=== PATIENT | female | born 1955 | race Caucasian/White ===

== ENCOUNTER 2016-10-17 14:36 | Outpatient (CLI) | payer BC, OTHER ==
[~2016-10-17] VITALS: Ht 160 cm; Wt 86.6 kg
[2016-10-17] MEDS ORDERED: LEVO75TA6 PO (16:07)
[2016-10-17] MEDS ORDERED: CITA20TA7 PO (16:07)
== END 2016-10-17 16:08 ==
LOC: PREOP 14:36
PROVIDERS: ATTEND Surgery Pediatric Surgery
DX: Z01.818 Encounter for other preprocedural examination (principal); K21.9 Gastro-esophageal reflux disease without esophagitis; R05 Cough

== ENCOUNTER → 2016-10-18 | Day surgery (SDC) | payer BC, OTHER ==
[~2016-10-18] MED LIST: ACETAMINOPHEN 325 MG TABLET/CAPLET (TYLENOL) PO PRN; CITA20TA7 PO; FLUMAZENIL (ROMAZICON) 0.1 MG/ML 5 ML VIAL INJ PRN; HURRICAINE EXT TUBE (BENZOCAINE) ONE; HURRICAINE EXT TUBE (BENZOCAINE) XX PRN; HYDROcodone/APAP 5 MG/325 MG (LORTAB) TAB PO PRN; LEVO75TA6 PO; LIDOCAINE JELLY 2% (XYLOCAINE) 5 ML TUBE MM PRN; MIDAZOLAM 2 MG/2 ML (VERSED) VIAL ONE; NALOXONE 0.4 MG/ML 1 ML (NARCAN) VIAL IVP PRN; NS IV 500 ML 500 ML IV PRN; ONDANSETRON 4 MG/2 ML (SDV) Z0FRAN IV PRN; fentaNYL INJECTION 100 MCG/2 ML AMP ONE; morphine INJ 10 MG/ML 1ML (SYR OR VIAL) IV PRN
--- NOTE | 2016-10-18 08:29 | Progress Note-Pre Operative ---
Pre-Operative Progress Note H&P Reviewed The H&P was reviewed, patient examined and no changes noted. Date H&P Reviewed: October 18, 2016 Time H&P Reviewed: 08:29 Pre-Operative Diagnosis: symptomatic large hiatal hernia HANS GAMEZ MD October 18, 2016 8:29 am
--- NOTE | 2016-10-18 08:29 | Conscious Sedation/ASA ---
Conscious Sedation Pre-Proced Time Reviewed: 08:29 ASA Class: 2 Airway Mallampati Classification: ([place] appropriate class) I. II. III, IV Lungs Heart ASA score ASA 1: a normal healthy patient ASA 2: a patient with a mild systemic disease (mid diabetes, controlled hypertension, obesity ASA 3: a patient with a severe systemic disease that limits activity (angina , COPD, prior Myocardial infarction) ASA 4: a patient with an incapacitating disease that is a constant threat to life (CHF, renal failure) ASA 5: a moribund patient not expected to survive 24 hrs. (ruptured aneurysm) ASA 6: a declared brain patient whose organs are being harvested. For emergent operations, add the letter E after the classification Grade 3 Sedation Plan: Analgesia, Amnesia, Plan communicated to team members, Discussed options with patient/fam, Discussed risks with patient/fam Note The patient is an appropriate candidate to undergo the planned procedure, sedation, and anesthesia. The patient immediately re-assessed prior to indication. HANS GAMEZ MD October 18, 2016 8:29 am
[2016-10-18 08:35] VITALS: BP 143/86
[2016-10-18] MEDS: fentaNYL INJECTION 100 MCG/2 ML AMP IVP PRN ×2 (09:43→09:46)
[2016-10-18] MEDS: MIDAZOLAM 2 MG/2 ML (VERSED) VIAL IVP PRN ×3 (09:45→09:50)
--- NOTE | 2016-10-18 10:23 | Progress Note-Post Operative ---
Post-Operative Progess Note Surgeon (s)/Faculty Administrator (s) Surgeon HANS GAMEZ MD Faculty Administrator: none Pre-Operative Diagnosis symptomatic large hiatal hernia Post-Operative Diagnosis same(hill grade 4, reflux esophagitis class B) Procedure & Operative Findings Date of Procedure 10/18/16 Procedure Performed/Findings EGD with bx. Anesthesia Type CS Estimated Blood Loss Estimated blood loss (mL): minimal Specimens/Packing Specimens Removed GE jxn, antrum Packing: none HANS GAMEZ MD October 18, 2016 10:23 am
--- NOTE | 2016-10-18 10:27 | Discharge Inst-Surgical ---
D/C Lap Instructions-FRANCO Follow Up PRN Activity as tolerated High Fiber Diet 25g or more per day Avoid Alcohol, Caffeine, Spicy [place] and Acid foods. Drink 64 fluid oz or more of fluids per day. Symptoms to Report: Fever over 101 degree F, Nausea/Vomiting If any problems/questions: Contact your physician or go to Emergency Room HANS GAMEZ MD October 18, 2016 10:27 am
[2016-10-18 10:40] VITALS: BP 138/79
[2016-10-18 11:06] VITALS: BP 130/63
--- NOTE | 2016-10-18 14:58 | OPERATIVE REPORT ---
DATE OF SERVICE: 10/18/2016 DATE OF PROCEDURE: 10/18/2016. ATTENDING PRIMARY CARE PHYSICIAN: Dr. Farmer. PREOPERATIVE DIAGNOSIS: Symptomatic large hiatal hernia. POSTOPERATIVE DIAGNOSIS: 1. Reflux esophagitis class B. 2. Hill grade IV hiatal hernia approximately 6 cm in size with the pylorus within the hernia sac. PROCEDURE: EGD with biopsy. SURGEON: Dr. Gamez ANESTHESIA: Conscious sedation. ESTIMATED BLOOD LOSS: Minimal. FINDINGS: A large grade IV hiatal hernia with reflux esophagitis class B in the GE junction which was intrathoracic. Within hernia sac was the antrum and pylorus of the stomach. DISPOSITION: The patient tolerated the procedure well. INDICATIONS: The patient is a 61-year-old female recently seen in the office for symptoms of a chronic cough, anorexia, epigastric pressure sensation. She reports that the cough has been around for a year; however, has worsened significantly in the past several months. She may have a coughing spell that lasts for greater than 45 minutes. She reports that the cough is nonproductive. She does not report any hematemesis. She does also report pressure sensation in the epigastric as well as the substernal region. She does not report any tabby episodes of nausea and vomiting as well as no typical signs of reflux, however, does have occasional episodes of regurgitation. An x-ray was performed which did show what appeared to be a large retrocardiac hiatal hernia. DESCRIPTION OF PROCEDURE: The patient was brought to the endoscopy suite, laid in the left lateral decubitus position. After adequate IV pain and sedating medications and conscious sedation anesthesia, the mouthpiece was applied. The endoscope was then placed in the mouth visualizing the pharynx and hypopharyngeal region. Vocal cords, epiglottis and vallecula identified and appeared to be normal. The endoscope was then gently intubated in the esophageal opening and esophagus insufflated. The endoscope was then advanced to the first, second and third portions of the esophagus. The GE junction was slightly intrathoracic consistent with a hiatal hernia. A reflux esophagitis class B identified. There were no ulcers or strictures identified in this region. A biopsy was taken with forceps with visualization of good hemostasis. The endoscope was then easily advanced in the stomach and the endoscope retroflexed. A large hiatal hernia was identified. An interesting finding was also that the antrum and pylorus appeared to be in the hernia sac as well. The endoscope was placed into the antrum and pylorus within the hernia sac; however, we were unable to intubate to the duodenum based on positioning. There did not appear to be any distal obstructions as well as no ulcerations or polyps as well as no neoplasms. A biopsy was taken of the stomach and antrum with forceps with visualization of good hemostasis. The endoscope was then slowly withdrawn while taking a 2nd look and suctioning of residual air with no additional findings. The patient tolerated the procedure well. We will await the biopsy results; however, she does have a large Hill grade IV hiatal hernia with reflux esophagitis class B. She has become symptomatic and will require repair of this hiatal hernia. This is a large hiatal hernia and is significant in terms of size, as well as the structures within the mediastinum and this may require a transthoracic approach for repair. Due to the type of hernia, she may also have esophageal shortening and may require Carli gastroplasty. Due to these findings, we will refer her to a tertiary center for evaluation as well as repair. She most likely will also need an esophageal manometry as well as a pH study and if she wishes to have these things scheduled, we will do that as well. Job ID: [id number] DocumentID: [id number] Dictated Date: 10/18/2016 10:25:39 Manager Discovery Date: 10/18/2016 14:57:08 Dictated By: HANS GAMEZ MD
== END ==
LOC: ENDO 08:23
PROVIDERS: ATTEND Surgery Pediatric Surgery
DX: K21.0 Gastro-esophageal reflux disease with esophagitis (principal); K44.9 Diaphragmatic hernia without obstruction or gangrene; E03.9 Hypothyroidism, unspecified; Z79.899 Other long term (current) drug therapy

== ENCOUNTER 2018-02-19 06:11 | Outpatient (CLI) | payer BC ==
[~2018-02-19] VITALS: Ht 160 cm; Wt 87.1 kg
[~2018-02-19 06:11] MED LIST changes: -ACETAMINOPHEN 325 MG TABLET/CAPLET (TYLENOL) PO PRN; -CITA20TA7 PO; +CITA20TA9 PO; -FLUMAZENIL (ROMAZICON) 0.1 MG/ML 5 ML VIAL INJ PRN; -HURRICAINE EXT TUBE (BENZOCAINE) ONE; -HURRICAINE EXT TUBE (BENZOCAINE) XX PRN; -HYDROcodone/APAP 5 MG/325 MG (LORTAB) TAB PO PRN; -LIDOCAINE JELLY 2% (XYLOCAINE) 5 ML TUBE MM PRN; -MIDAZOLAM 2 MG/2 ML (VERSED) VIAL ONE; -NALOXONE 0.4 MG/ML 1 ML (NARCAN) VIAL IVP PRN; -NS IV 500 ML 500 ML IV PRN; -ONDANSETRON 4 MG/2 ML (SDV) Z0FRAN IV PRN; -fentaNYL INJECTION 100 MCG/2 ML AMP ONE; -morphine INJ 10 MG/ML 1ML (SYR OR VIAL) IV PRN
[2018-02-19] MEDS ORDERED: [UNRECOGNIZED DRUG - CODE] PO (14:34)
== END 2018-02-19 14:45 | disposition home or self-care (01) ==
LOC: PREOP 06:11
PROVIDERS: ATTEND Surgery
DX: Z01.818 Encounter for other preprocedural examination (principal)

== ENCOUNTER 2018-02-21 10:25 | Day surgery (SDC) | payer BC ==
[~2018-02-21] VITALS: Ht 160 cm; Wt 87.1 kg
[~2018-02-21 10:25] MED LIST changes: +[UNRECOGNIZED DRUG - CODE] PO
--- OUTSIDE RECORDS SUMMARY | 2018-02-21 10:29 | XMS REPORT | Clinical Summary ---
Author Author [facility] Organization [facility] Address Unknown Phone Unavailable Care Team Providers Care Baseball Winder Name Role Phone Roxie Farmer MD PCP Source Comments Some departments are not documenting in the electronic medical record. If you do not see the information that you expected, contact Release of Information in the Health Information Management department at [phone] for further assistance in locating additional records.[facility] Allergies No Known Allergies Current Medications Prescription Sig. Disp. Refills Start End Date Status Date clobetasol (TEMOVATE) Apply 1 g topically to Active 0.05 % topical cream affected area as Needed. levothyroxine (SYNTHROID) Take 75 mcg by mouth Active 75 mcg tablet daily 30 minutes before breakfast. escitalopram oxalate Take 20 mg by mouth Active (LEXAPRO) 20 mg tablet daily. pantoprazole DR Take 40 mg by mouth Active (PROTONIX) 40 mg tablet daily. benzonatate (TESSALON Take 100 mg by mouth Active PERLES) 100 mg capsule every 8 hours as needed for Cough. cholecalciferol (VITAMIN Take 1,000 Units by mouth Active D-3) 1,000 units tablet twice daily. Active Problems Problem Noted Date Hiatal hernia Hypothyroidism Depression Family History Medical History Relation Name Comments Diabetes Brother Cancer Mother Intraperitoneal cancer w/ mets to pancreas Hypertension Mother Hypertension Sister Relation Name Status Comments Brother Mother Sister Social History Tobacco Use Types Packs/Day Years Used Date Never Smoker Smokeless Tobacco: Never Used Sex Assigned at Date Recorded Not on file Last Filed Vital Signs Vital Sign Reading Time Taken Blood Pressure 126/84 01/15/2017 1:40 PM CDT Pulse 72 01/15/2017 1:40 PM CDT Temperature 36.5 C (97.7 F) 01/15/2017 1:40 PM CDT Respiratory Rate - - Oxygen Saturation 98% 01/15/2017 1:40 PM CDT Inhaled Oxygen - - Concentration Weight 87.9 kg (193 lb 12.8 oz) 01/15/2017 1:40 PM CDT Height 157 cm (5' 1.8") 01/15/2017 1:40 PM CDT Body Mass Index 35.68 01/15/2017 1:40 PM CDT Plan of Treatment Health Maintenance Due Date Last Done Comments HEPATITIS C SCREENING 1953 PHYSICAL (COMPREHENSIVE) 1960 EXAM PERTUSSIS VACCINE 1964 HIV SCREENING 1968 TETANUS VACCINE 1970 CERVICAL CANCER SCREENING 1983 BREAST CANCER SCREENING 1993 COLORECTAL CANCER 2003 SCREENING SHINGLES RECOMBINANT 2003 VACCINE (1 of 2) INFLUENZA VACCINE 03/03/2018 Results Not on filefrom Last 3 Months
[2018-02-21 10:30] VITALS: BP 122/81
--- OUTSIDE RECORDS SUMMARY | 2018-02-21 10:30 | XMS REPORT | Clinical Summary ---
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 Inactive Tobin Navarrete MD Dermatomycosis, unspecified G E R D 530.81 Active Tobin Navarrete MD Esophageal reflux SINUSITIS 473.9 Resolved Belkys Van MD PhD Unspecified sinusitis (chronic) ALLERGIC RHINITIS 477.9 Active Tobin Navarrete MD Allergic rhinitis, cause unspecified COUGH 786.2 Resolved Belkys Van MD PhD Cough Depression 311 Active Zahira Grant APRN Depressive disorder, not elsewhere classified Sinusitis, acute 461.9 Resolved Belkys Van MD PhD Acute sinusitis, unspecified Dysuria 788.1 Active Belkys Van MD PhD Dysuria Sinusitis, maxillary, acute 461.0 Active Belkys Van MD PhD Acute maxillary sinusitis Laboratory examination ordered as part of a routine general medical examination V72.62 Active Kaity Lord A Laboratory examination ordered as part of a routine general medical examination Long-term (current) use of other medications V58.69 Active 12/08 Kaity Lord RMA Long-term (current) use of other medications Adult healthy physical V70.0 Active Cindy Deniseughan RMA Routine general medical examination at a health care facility Pharyngitis, acute / sore throat 462 Active Tosha De La Rosa APRN Acute pharyngitis OTITIS EXTERNA ICD-380.10 Inactive Belkys Van MD PhD FUNGAL DERMATITIS ICD-111.9 Inactive Tobin Navarrete MD SINUSITIS ICD-473.9 Inactive Belkys Van MD PhD COUGH ICD-786.2 Inactive Belkys Van MD PhD 06/14 Sinusitis, acute ICD-461.9 Inactive Belkys Van MD PhD Medication List Medication Instructions Start Date Stop Date Generic Name NDC Status Provider Patient Instruction AMOXICILLIN-POT CLAVULANATE 875-125 MG TABS 1 twice a day AMOXICILLIN-POT CLAVULANATE 75003438499 Active Tosha De La Rosa APRN Active TESSALON PERLES 100 MG CAPS 1 three times a day as needed for cough BENZONATATE 53596424816 Active SHYANNE Mariscal Active GUAIFENESIN-CODEINE 100-10 MG/5ML SYRP 5ml every 4 to 6 hours as needed for cough GUAIFENESIN-CODEINE 77662106020 No Longer Active Tosha De La Rosa APRN Active AMOXICILLIN-POT CLAVULANATE 875-125 MG TABS 1 twice a day AMOXICILLIN-POT CLAVULANATE 30232983730 No Longer Active Tosha De La Rosa APRN Active ZYRTEC ALLERGY 10 MG CAPS 1 po qd CETIRIZINE HCL 54535372205 No Longer Active Tosha De La Rosa APRN Active LEVAQUIN 500 MG TAB 1 tablet by mouth daily LEVOFLOXACIN 91861208967 No Longer Active Belkys Van MD PhD Active CLOBETASOL PROPIONATE 0.05 % EXT CREA apply daily CLOBETASOL PROPIONATE 74537401623 Active Belkys Van MD PhD Active LEVOXYL 75 MCG ORAL TABS Take one by mouth daily LEVOTHYROXINE SODIUM 41058504229 Active Belkys Van MD PhD Active VITAMIN D3 1000 UNIT CAPS 1 po qd CHOLECALCIFEROL 13714198014 Active Belkys Van MD PhD Active LEXAPRO 10 MG TABS 1 tablet by mouth daily ESCITALOPRAM OXALATE 94826972277 Active Belkys Van MD PhD Active SERTRALINE HCL 100 MG TABS 1/2 tab daily SERTRALINE HCL 64060551805 No Longer Active Belkys Van MD PhD Active AMOXICILLIN 500 MG CAPS 2 po BID x 10 days AMOXICILLIN 82466456317 No Longer Active Belkys Van MD PhD Active FLUTICASONE PROPIONATE 50 MCG/ACT SUSP 1 to 2 sprays each nostril daily FLUTICASONE PROPIONATE 41700017595 Active Belkys Van MD PhD Active RANITIDINE HCL 300 MG CAPS 1 tablet by mouth daily RANITIDINE HCL 03835734575 No Longer Active Belkys Van MD PhD Active AMOXICILLIN 500 MG CAPS 2 po BID x 10 days AMOXICILLIN 03109168283 No Longer Active Jesus Spencer MD Active MEDROL (ELIZABETH) 4 MG TABS 6 tabs on day 1, 5 tabs on day 2, 4 tabs on day 3, 3 tabs on day 4, 2 tabs on day 5, 1 tab on day 6 METHYLPREDNISOLONE 54875442912 No Longer Active Zahira Grant APRN Active ZITHROMAX 250 MG TAB 2 po today, then 1 po q days 2-5 AZITHROMYCIN 99542131211 No Longer Active Zahira Grant APRN Active CORTISPORIN 3.5-14402-5 SOLN 4gtts in affected ear QID x 7 days [id number] 49711072709 No Longer Active Zahira Grant APRN Active AMOXICILLIN 500 MG CAP 1 tab by mouth 3 times daily AMOXICILLIN 09492502068 No Longer Active Tobin Navarrete MD Active CORTISPORIN 3.5-25492-6 SOLN 4gtts in affected ear QID x 7 days CORTISPORIN 3.5-42441-2 SOLN 691138 [id number] Inactive RANITIDINE HCL 300 MG CAPS 1 tablet by mouth daily RANITIDINE HCL 300 MG CAPS 292474 RANITIDINE HCL Inactive SERTRALINE HCL 100 MG TABS 1/2 tab daily SERTRALINE HCL 100 MG TABS 121565 SERTRALINE HCL Inactive ZYRTEC ALLERGY 10 MG CAPS 1 po qd ZYRTEC ALLERGY 10 MG CAPS CETIRIZINE HCL Inactive AMOXICILLIN-POT CLAVULANATE 875-125 MG TABS 1 twice a day AMOXICILLIN-POT CLAVULANATE 875-125 MG TABS 860784 AMOXICILLIN-POT CLAVULANATE Inactive GUAIFENESIN-CODEINE 100-10 MG/5ML SYRP 5ml every 4 to 6 hours as needed for cough GUAIFENESIN-CODEINE 100-10 MG/5ML SYRP 025700 GUAIFENESIN-CODEINE Inactive AMOXICILLIN 500 MG CAP 1 tab by mouth 3 times daily AMOXICILLIN 500 MG CAP 114813 AMOXICILLIN Inactive ZITHROMAX 250 MG TAB 2 po today, then 1 po q days 2-5 ZITHROMAX 250 MG TAB 033372 AZITHROMYCIN Inactive MEDROL (ELIZABETH) 4 MG TABS 6 tabs on day 1, 5 tabs on day 2, 4 tabs on day 3, 3 tabs on day 4, 2 tabs on day 5, 1 tab on day 6 MEDROL ( ELIZABETH) 4 MG TABS 258025 METHYLPREDNISOLONE Inactive AMOXICILLIN 500 MG CAPS 2 po BID x 10 days AMOXICILLIN 500 MG CAPS 326493 AMOXICILLIN Inactive AMOXICILLIN 500 MG CAPS 2 po BID x 10 days AMOXICILLIN 500 MG CAPS 145211 AMOXICILLIN Inactive LEVAQUIN 500 MG TAB 1 tablet by mouth daily LEVAQUIN 500 MG TAB 184292 LEVOFLOXACIN Inactive Advance Directives Directive Description Start Date PERMISSION TO SHARE Immunizations Vaccine Administration Date Value Standard Description TB-PPD (tuberculin purified protein derivative), intradermal administration Tubersol Vital Signs Date Name Value Unit Range Description blood pressure, diastolic 85 mm[Hg] BP márquez blood pressure, systolic 138 mm[Hg] BP sys height E&M 62 [in_us] Bdy height pulse rate E&M 89 /min Heart rate temperature E&M 99.3 [degF] Body temperature weight E&M 197.5 [lb_av] Weight Measured Encounters Code Encounter Date Provider Facility CPT-30796 Level 3 Est. Patient 11:16:00 CDT Tosha De La Rosa [facility] CPT-70561 Level 3 Est. Patient 12:33:37 BANKING ASSISTANT Jesus Spencer MD [facility] CPT-45793 Level 3 Est. Patient 17:40:56 CDT Belkys Van MD PhD [facility] CPT-54767 Level 3 Est. Patient 17:06:11 BANKING ASSISTANT Belkys Van MD PhD [facility] CPT-49753 Level 3 Est. Patient 12:15:32 CDT Jesus Spencer MD [facility] CPT-12408 Level 3 Est. Patient 12:36:00 BANKING ASSISTANT Zahira Grant [facility] [place] CPT-31041 Level 3 Est. Patient 10:08:04 CDT Tobin Navarrete MD [facility] CPT-62544 Level 3 Est. Patient 18:50:31 BANKING ASSISTANT Tobin Navarrete MD [facility] CPT-35160 Level 2 New Patient 12:45:04 CDT Jesus Spencer MD [facility] Procedures Code Procedure Name Date Entry Date Standard Description CPT-85553 Chest 2V Frontal and Lat - XRAY USE ONLY 17:12:28 CDT CPT-46351 Chest 2V Frontal and Lat - XRAY USE ONLY 17:07:35 CDT CPT-33404 Venipuncture Draw Fee 10:30:24 CDT CPT-33687 Venipuncture Draw Fee 16:14:07 CDT CPT-05011 TB Tubersol 16:59:46 CDT
--- OUTSIDE RECORDS SUMMARY | 2018-02-21 10:32 | XMS REPORT | Clinical Summary ---
Author Author Admin, KENIA Organization [facility] Address Unknown Phone Unavailable Allergies, Adverse Reactions, [...] TABS 1 twice a day AMOXICILLIN-POT CLAVULANATE 91343283568 Active Tosha De La Rosa APRN Active TESSALON PERLES 100 MG CAPS 1 three times a day as needed for cough BENZONATATE 00275055893 Active SHYANNE Mariscal Active GUAIFENESIN-CODEINE 100-10 MG/5ML SYRP 5ml every 4 to 6 hours as needed for cough GUAIFENESIN-CODEINE 04714812100 No Longer Active Tosha De La Rosa APRN Active AMOXICILLIN-POT CLAVULANATE 875-125 MG TABS 1 twice a day AMOXICILLIN-POT CLAVULANATE 69670376292 No Longer Active Tosha De La Rosa APRN Active ZYRTEC ALLERGY 10 MG CAPS 1 po qd CETIRIZINE HCL 11705446699 No Longer Active Tosha De La Rosa APRN Active LEVAQUIN 500 MG TAB 1 tablet by mouth daily LEVOFLOXACIN 19883590288 No Longer Active Belkys Van MD PhD Active CLOBETASOL PROPIONATE 0.05 % EXT CREA apply daily CLOBETASOL PROPIONATE 55098617111 Active Belkys Van MD PhD Active LEVOXYL 75 MCG ORAL TABS Take one by mouth daily LEVOTHYROXINE SODIUM 77384910685 Active Belkys Van MD PhD Active VITAMIN D3 1000 UNIT CAPS 1 po qd CHOLECALCIFEROL 17569328717 Active Belkys Van MD PhD Active LEXAPRO 10 MG TABS 1 tablet by mouth daily ESCITALOPRAM OXALATE 72997934815 Active Belkys Van MD PhD Active SERTRALINE HCL 100 MG TABS 1/2 tab daily SERTRALINE HCL 76828486031 No Longer Active Belkys Van MD PhD Active AMOXICILLIN 500 MG CAPS 2 po BID x 10 days AMOXICILLIN 07397700829 No Longer Active Belkys Van MD PhD Active FLUTICASONE PROPIONATE 50 MCG/ACT SUSP 1 to 2 sprays each nostril daily FLUTICASONE PROPIONATE 69378677254 Active Belkys Van MD PhD Active RANITIDINE HCL 300 MG CAPS 1 tablet by mouth daily RANITIDINE HCL 99570904681 No Longer Active Belkys Van MD PhD Active AMOXICILLIN 500 MG CAPS 2 po BID x 10 days AMOXICILLIN 27527499350 No Longer Active Jesus Spencer MD Active MEDROL (ELIZABETH) 4 MG TABS 6 tabs on day 1, 5 tabs on day 2, 4 tabs on day 3, 3 tabs on day 4, 2 tabs on day 5, 1 tab on day 6 METHYLPREDNISOLONE 44455563568 No Longer Active Zahira Grant APRN Active ZITHROMAX 250 MG TAB 2 po today, then 1 po q days 2-5 AZITHROMYCIN 52049856257 No Longer Active Zahira Grant APRN Active CORTISPORIN 3.5-99579-1 SOLN 4gtts in affected ear QID x 7 days [id number] 49667598291 No Longer Active Zahira Grant APRN Active AMOXICILLIN 500 MG CAP 1 tab by mouth 3 times daily AMOXICILLIN 69978082038 No Longer Active Tobin Navarrete MD Active CORTISPORIN 3.5-51932-5 SOLN 4gtts in affected ear QID x 7 days CORTISPORIN 3.5-44270-6 SOLN 031143 [id number] Inactive RANITIDINE HCL 300 MG CAPS 1 tablet by mouth daily RANITIDINE HCL 300 MG CAPS 343177 RANITIDINE HCL Inactive SERTRALINE HCL 100 MG TABS 1/2 tab daily SERTRALINE HCL 100 MG TABS 510814 SERTRALINE HCL Inactive ZYRTEC ALLERGY 10 MG CAPS 1 po qd ZYRTEC ALLERGY 10 MG CAPS CETIRIZINE HCL Inactive AMOXICILLIN-POT CLAVULANATE 875-125 MG TABS 1 twice a day AMOXICILLIN-POT CLAVULANATE 875-125 MG TABS 449251 AMOXICILLIN-POT CLAVULANATE Inactive GUAIFENESIN-CODEINE 100-10 MG/5ML SYRP 5ml every 4 to 6 hours as needed for cough GUAIFENESIN-CODEINE 100-10 MG/5ML SYRP 812945 GUAIFENESIN-CODEINE Inactive AMOXICILLIN 500 MG CAP 1 tab by mouth 3 times daily AMOXICILLIN 500 MG CAP 628443 AMOXICILLIN Inactive ZITHROMAX 250 MG TAB 2 po today, then 1 po q days 2-5 ZITHROMAX 250 MG TAB 355734 AZITHROMYCIN Inactive MEDROL (ELIZABETH) 4 MG TABS 6 tabs on day 1, 5 tabs on day 2, 4 tabs on day 3, 3 tabs on day 4, 2 tabs on day 5, 1 tab on day 6 MEDROL ( ELIZABETH) 4 MG TABS 983083 METHYLPREDNISOLONE Inactive AMOXICILLIN 500 MG CAPS 2 po BID x 10 days AMOXICILLIN 500 MG CAPS 887045 AMOXICILLIN Inactive AMOXICILLIN 500 MG CAPS 2 po BID x 10 days AMOXICILLIN 500 MG CAPS 293059 AMOXICILLIN Inactive LEVAQUIN 500 MG TAB 1 tablet by mouth daily LEVAQUIN 500 MG TAB 724208 LEVOFLOXACIN Inactive Advance Directives Directive Description Start [...] Measured Encounters Code Encounter Date Provider Facility CPT-62654 Level 3 Est. Patient 11:16:00 CDT Tosha De La Rosa [facility] CPT-29102 Level 3 Est. Patient 12:33:37 BUILDING SURVEYOR Jesus Spencer MD [facility] CPT-54061 Level 3 Est. Patient 17:40:56 CDT Belkys Van MD PhD [facility] CPT-62750 Level 3 Est. Patient 17:06:11 BUILDING SURVEYOR Belkys Van MD PhD [facility] CPT-34979 Level 3 Est. Patient 12:15:32 CDT Jesus Spencer MD [facility] CPT-06934 Level 3 Est. Patient 12:36:00 BUILDING SURVEYOR Zahira Grant [facility] CPT-60884 Level 3 Est. Patient 10:08:04 CDT Tobin Navarrete MD [facility] CPT-22727 Level 3 Est. Patient 18:50:31 BUILDING SURVEYOR Tobin Navarrete MD [facility] CPT-97700 Level 2 New Patient 12:45:04 CDT Jesus Spencer MD [facility] Procedures Code Procedure Name Date Entry Date Standard Description CPT-89067 Chest 2V Frontal and Lat - XRAY USE ONLY 17:12:28 CDT CPT-59737 Chest 2V Frontal and Lat - XRAY USE ONLY 17:07:35 CDT CPT-86992 Venipuncture Draw Fee 10:30:24 CDT CPT-46753 Venipuncture Draw Fee 16:14:07 CDT CPT-14195 TB Tubersol 16:59:46 CDT
--- OUTSIDE RECORDS SUMMARY | 2018-02-21 10:32 | XMS REPORT | Clinical Summary ---
Author Author Admin, KENIA Organization [facility] Address Unknown Phone Unavailable Allergies, Adverse Reactions, [...] medications Adult healthy physical V70.0 Active Cindy Jaimes RMA Routine general medical examination at a health care facility Pharyngitis, acute / sore throat 462 Active Tosha De La Rosa APRN Acute pharyngitis OTITIS EXTERNA ICD-380.10 Inactive Belkys Van MD PhD FUNGAL DERMATITIS ICD-111.9 Inactive Tobin Navarrete MD SINUSITIS ICD-473.9 Inactive Belyks Van MD PhD COUGH ICD-786.2 Inactive Belkys Van MD PhD 06/14 Sinusitis, acute ICD-461.9 Inactive Belkys Van MD PhD Medication List Medication Instructions Start Date Stop Date Generic Name NDC Status Provider Patient Instruction AMOXICILLIN-POT CLAVULANATE 875-125 MG TABS 1 twice a day AMOXICILLIN-POT CLAVULANATE 61676009149 Active Tosha De La Rosa APRN Active TESSALON PERLES 100 MG CAPS 1 three times a day as needed for cough BENZONATATE 35698909357 Active Tosha De La Rosa APRN Active GUAIFENESIN-CODEINE 100-10 MG/5ML SYRP 5ml every 4 to 6 hours as needed for cough GUAIFENESIN-CODEINE 74030773687 No Longer Active Tosha De La Rosa APRN Active AMOXICILLIN-POT CLAVULANATE 875-125 MG TABS 1 twice a day AMOXICILLIN-POT CLAVULANATE 01723444460 No Longer Active Tosha De La Rosa APRN Active ZYRTEC ALLERGY 10 MG CAPS 1 po qd CETIRIZINE HCL 29336025097 No Longer Active Tosha De La Rosa APRN Active LEVAQUIN 500 MG TAB 1 tablet by mouth daily LEVOFLOXACIN 92764866359 No Longer Active Belkys Van MD PhD Active CLOBETASOL PROPIONATE 0.05 % EXT CREA apply daily CLOBETASOL PROPIONATE 02887374328 Active Belkys Van MD PhD Active LEVOXYL 75 MCG ORAL TABS Take one by mouth daily LEVOTHYROXINE SODIUM 81511591758 Active Belkys Van MD PhD Active VITAMIN D3 1000 UNIT CAPS 1 po qd CHOLECALCIFEROL 37825086451 Active Belkys Van MD PhD Active LEXAPRO 10 MG TABS 1 tablet by mouth daily ESCITALOPRAM OXALATE 81980753028 Active Belkys Van MD PhD Active SERTRALINE HCL 100 MG TABS 1/2 tab daily SERTRALINE HCL 13220683841 No Longer Active Belkys Van MD PhD Active AMOXICILLIN 500 MG CAPS 2 po BID x 10 days AMOXICILLIN 83040367068 No Longer Active Belkys Van MD PhD Active FLUTICASONE PROPIONATE 50 MCG/ACT SUSP 1 to 2 sprays each nostril daily FLUTICASONE PROPIONATE 35620245914 Active Belkys Van MD PhD Active RANITIDINE HCL 300 MG CAPS 1 tablet by mouth daily RANITIDINE HCL 87527759360 No Longer Active Belkys Van MD PhD Active AMOXICILLIN 500 MG CAPS 2 po BID x 10 days AMOXICILLIN 21982930904 No Longer Active Jesus Spenecr MD Active MEDROL (ELIZABETH) 4 MG TABS 6 tabs on day 1, 5 tabs on day 2, 4 tabs on day 3, 3 tabs on day 4, 2 tabs on day 5, 1 tab on day 6 METHYLPREDNISOLONE 59994359088 No Longer Active Zahira Grant APRN Active ZITHROMAX 250 MG TAB 2 po today, then 1 po q days 2-5 AZITHROMYCIN 46638941866 No Longer Active Zahira Grant APRN Active CORTISPORIN 3.5-36744-8 SOLN 4gtts in affected ear QID x 7 days [id number] 09154717052 No Longer Active Zahira Grant APRN Active AMOXICILLIN 500 MG CAP 1 tab by mouth 3 times daily AMOXICILLIN 70172923872 No Longer Active Tobin Navarrete MD Active CORTISPORIN 3.5-63955-7 SOLN 4gtts in affected ear QID x 7 days CORTISPORIN 3.5-36389-4 SOLN 562911 [id number] Inactive RANITIDINE HCL 300 MG CAPS 1 tablet by mouth daily RANITIDINE HCL 300 MG CAPS 653955 RANITIDINE HCL Inactive SERTRALINE HCL 100 MG TABS 1/2 tab daily SERTRALINE HCL 100 MG TABS 982447 SERTRALINE HCL Inactive ZYRTEC ALLERGY 10 MG CAPS 1 po qd ZYRTEC ALLERGY 10 MG CAPS CETIRIZINE HCL Inactive AMOXICILLIN-POT CLAVULANATE 875-125 MG TABS 1 twice a day AMOXICILLIN-POT CLAVULANATE 875-125 MG TABS 337229 AMOXICILLIN-POT CLAVULANATE Inactive GUAIFENESIN-CODEINE 100-10 MG/5ML SYRP 5ml every 4 to 6 hours as needed for cough GUAIFENESIN-CODEINE 100-10 MG/5ML SYRP 995756 GUAIFENESIN-CODEINE Inactive AMOXICILLIN 500 MG CAP 1 tab by mouth 3 times daily AMOXICILLIN 500 MG CAP 274938 AMOXICILLIN Inactive ZITHROMAX 250 MG TAB 2 po today, then 1 po q days 2-5 ZITHROMAX 250 MG TAB 0414389 AZITHROMYCIN Inactive MEDROL (ELIZABETH) 4 MG TABS 6 tabs on day 1, 5 tabs on day 2, 4 tabs on day 3, 3 tabs on day 4, 2 tabs on day 5, 1 tab on day 6 MEDROL ( ELIZABETH) 4 MG TABS 412465 METHYLPREDNISOLONE Inactive AMOXICILLIN 500 MG CAPS 2 po BID x 10 days AMOXICILLIN 500 MG CAPS 200872 AMOXICILLIN Inactive AMOXICILLIN 500 MG CAPS 2 po BID x 10 days AMOXICILLIN 500 MG CAPS 157585 AMOXICILLIN Inactive LEVAQUIN 500 MG TAB 1 tablet by mouth daily LEVAQUIN 500 MG TAB 011796 LEVOFLOXACIN Inactive Advance Directives Directive Description Start Date PERMISSION TO SHARE Immunizations Vaccine Administration Date Value Standard Description TB-PPD (tuberculin purified protein derivative), intradermal administration Tubersol Vital Signs Date Name Value Unit Range Description blood pressure, diastolic - 8462-4 85 mm[Hg] BP márquez blood pressure, systolic - 8480-6 138 mm[Hg] BP sys height E&M - 8302-2 62 [in_us] Bdy height pulse rate E&M - 8867-4 89 /min Heart rate temperature E&M 99.3 [degF] Body temperature weight E&M - 3141-9 197.5 [lb_av] Weight Measured Diagnostic Results Date Name Value Unit Range Description Lab Report: CBC W/DIFF, Comp. Metabolic Panel, Thyroid Stimulating Hormo ... - Chemistry sodium, serum 141 mmol/L 007-450 8198/07/25 carbon dioxide, venous blood 30.6 mmol/L 21.0-32.0 potassium, serum 4.9 mmol/L 3.5-5.2 chloride, serum 106 mmol/L 98-107 blood glucose 90 mg/dL 65-110 urea nitrogen, blood 12 mg/dL 7-18 creatinine, serum 0.82 mg/dL 0.55-1.30 alanine aminotransferase (SGPT), serum 22 U/L 12-78 aspartate aminotransferase (SGOT), serum 17 U/L 15-37 calcium, serum 8.8 mg/dL 8.5-10.1 bilirubin, serum, total 0.50 mg/dL 0.00-1.00 TSH 3.19 m[iU]/mL 0.36-3.74 thyroxine, serum, free 0.95 ng/dL 0.76-1.46 cholesterol, serum 164 mg/dL 993-808 1457/07/25 triglyceride, serum, fasting 100 mg/dL 30-200 HDL cholesterol, serum 51 mg/dL 32-96 LDL cholesterol, serum 93 mg/dL 0-130 Lab Report: CBC W/DIFF, Comp. Metabolic Panel, Thyroid Stimulating Hormo ... - Hematology leukocyte count, blood 5.1 10^3/MM^3 10*3/mm3 4.6-10.2 neutrophils as percent of blood leukocytes 64.9 % 42.2-75.2 monocytes as percent of blood leukocytes 5.3 % 1.7-9.3 lymphocytes as percent of blood leukocytes 25.9 % 20.5-51.1 erythrocyte (RBC) count 4.48 10^6/MM^3 10*6/mm3 4.04-5.48 hemoglobin, blood 12.7 g/dL 12.0-16.0 hematocrit, blood 39.0 % 36.0-46.0 mean corpuscular volume, RBC 87 fL 80-97 mean corpuscular hemoglobin, RBC 28.5 pg 27.0-31.2 mean corpuscular hemoglobin concentration, RBC 32.7 G/DL % 31.8- 35.4 red blood cell distribution width 15.3 % 11.6-14.8 platelet count 279 10^3/MM^3 10*3/mm3 142-424 Encounters Code Encounter Date Provider Facility CPT-47714 Level 3 Est. Patient 11:16:00 CDT Tosha De La Rosa APRN [facility] CPT-65949 Level 3 Est. Patient 12:33:37 [employer] Jesus Spencer MD [facility] CPT-63268 Level 3 Est. Patient 17:40:56 CDT Belkys Van MD PhD [facility] CPT-52645 Level 3 Est. Patient 17:06:11 [employer] Belkys Van MD PhD [facility] CPT-67969 Level 3 Est. Patient 12:15:32 CDT Jesus Spencer MD [facility] CPT-25028 Level 3 Est. Patient 12:36:00 [employer] Zahira Grant APRN [facility] CPT-92461 Level 3 Est. Patient 10:08:04 CDT Tobin Navarrete MD [facility] CPT-06013 Level 3 Est. Patient 18:50:31 [employer] Tobin Navarrete MD [facility] CPT-74471 Level 2 New Patient 12:45:04 CDT Jesus Spencer MD [facility] Procedures Code Procedure Name Date Entry Date Standard Description CPT-23239 Chest 2V Frontal and Lat - XRAY USE ONLY 17:12:28 CDT CPT-87230 Chest 2V Frontal and Lat - XRAY USE ONLY 17:07:35 CDT CPT-77266 Venipuncture Draw Fee 10:30:24 CDT CPT-10836 Venipuncture Draw Fee 16:14:07 CDT CPT-30975 TB Tubersol 16:59:46 CDT
--- OUTSIDE RECORDS SUMMARY | 2018-02-21 10:33 | XMS REPORT | Clinical Summary ---
Author Author Admin, KENIA Organization [facility] Address Unknown Phone Unavailable Allergies, Adverse Reactions, [...] Van MD PhD FUNGAL DERMATITIS ICD-111.9 Inactive Tobni Navarrete MD SINUSITIS ICD-473.9 Inactive Belkys Van MD PhD COUGH ICD-786.2 Inactive Belkys Van MD PhD 06/14 Sinusitis, acute ICD-461.9 Inactive Belkys Van MD PhD Medication List Medication Instructions Start Date Stop Date Generic Name NDC Status Provider Patient Instruction AMOXICILLIN-POT CLAVULANATE 875-125 MG TABS 1 twice a day AMOXICILLIN-POT CLAVULANATE 34169035674 Active Tosha De La Rosa APRN Active TESSALON PERLES 100 MG CAPS 1 three times a day as needed for cough BENZONATATE 69664585571 Active SHYANNE Mariscal Active GUAIFENESIN-CODEINE 100-10 MG/5ML SYRP 5ml every 4 to 6 hours as needed for cough GUAIFENESIN-CODEINE 09200055757 No Longer Active Tosha De La Rosa APRN Active AMOXICILLIN-POT CLAVULANATE 875-125 MG TABS 1 twice a day AMOXICILLIN-POT CLAVULANATE 46348699824 No Longer Active Tosha De La Rosa APRN Active ZYRTEC ALLERGY 10 MG CAPS 1 po qd CETIRIZINE HCL 84046785315 No Longer Active Tosha De La Rosa APRN Active LEVAQUIN 500 MG TAB 1 tablet by mouth daily LEVOFLOXACIN 48041776810 No Longer Active Belkys Van MD PhD Active CLOBETASOL PROPIONATE 0.05 % EXT CREA apply daily CLOBETASOL PROPIONATE 01618950880 Active Belkys Van MD PhD Active LEVOXYL 75 MCG ORAL TABS Take one by mouth daily LEVOTHYROXINE SODIUM 45408880297 Active Belkys Van MD PhD Active VITAMIN D3 1000 UNIT CAPS 1 po qd CHOLECALCIFEROL 94110360418 Active Belkys Van MD PhD Active LEXAPRO 10 MG TABS 1 tablet by mouth daily ESCITALOPRAM OXALATE 77338173201 Active Belkys Van MD PhD Active SERTRALINE HCL 100 MG TABS 1/2 tab daily SERTRALINE HCL 10228835523 No Longer Active Belkys Van MD PhD Active AMOXICILLIN 500 MG CAPS 2 po BID x 10 days AMOXICILLIN 02849932769 No Longer Active Belkys Van MD PhD Active FLUTICASONE PROPIONATE 50 MCG/ACT SUSP 1 to 2 sprays each nostril daily FLUTICASONE PROPIONATE 77201211599 Active Belkys Van MD PhD Active RANITIDINE HCL 300 MG CAPS 1 tablet by mouth daily RANITIDINE HCL 04617297670 No Longer Active Belkys Van MD PhD Active AMOXICILLIN 500 MG CAPS 2 po BID x 10 days AMOXICILLIN 62206219131 No Longer Active Jesus Spencer MD Active MEDROL (ELIZABETH) 4 MG TABS 6 tabs on day 1, 5 tabs on day 2, 4 tabs on day 3, 3 tabs on day 4, 2 tabs on day 5, 1 tab on day 6 METHYLPREDNISOLONE 63559738627 No Longer Active Zahira Grant APRN Active ZITHROMAX 250 MG TAB 2 po today, then 1 po q days 2-5 AZITHROMYCIN 97811755183 No Longer Active Zahira Grant APRN Active CORTISPORIN 3.5-73232-3 SOLN 4gtts in affected ear QID x 7 days [id number] 58880791282 No Longer Active Zahira Grant APRN Active AMOXICILLIN 500 MG CAP 1 tab by mouth 3 times daily AMOXICILLIN 94121842842 No Longer Active Tobin Navarrete MD Active CORTISPORIN 3.5-67122-3 SOLN 4gtts in affected ear QID x 7 days CORTISPORIN 3.5-49845-5 SOLN 820343 [id number] Inactive RANITIDINE HCL 300 MG CAPS 1 tablet by mouth daily RANITIDINE HCL 300 MG CAPS 797978 RANITIDINE HCL Inactive SERTRALINE HCL 100 MG TABS 1/2 tab daily SERTRALINE HCL 100 MG TABS 372037 SERTRALINE HCL Inactive ZYRTEC ALLERGY 10 MG CAPS 1 po qd ZYRTEC ALLERGY 10 MG CAPS CETIRIZINE HCL Inactive AMOXICILLIN-POT CLAVULANATE 875-125 MG TABS 1 twice a day AMOXICILLIN-POT CLAVULANATE 875-125 MG TABS 571115 AMOXICILLIN-POT CLAVULANATE Inactive GUAIFENESIN-CODEINE 100-10 MG/5ML SYRP 5ml every 4 to 6 hours as needed for cough GUAIFENESIN-CODEINE 100-10 MG/5ML SYRP 910644 GUAIFENESIN-CODEINE Inactive AMOXICILLIN 500 MG CAP 1 tab by mouth 3 times daily AMOXICILLIN 500 MG CAP 686807 AMOXICILLIN Inactive ZITHROMAX 250 MG TAB 2 po today, then 1 po q days 2-5 ZITHROMAX 250 MG TAB 917935 AZITHROMYCIN Inactive MEDROL (ELIZABETH) 4 MG TABS 6 tabs on day 1, 5 tabs on day 2, 4 tabs on day 3, 3 tabs on day 4, 2 tabs on day 5, 1 tab on day 6 MEDROL ( ELIZABETH) 4 MG TABS 712405 METHYLPREDNISOLONE Inactive AMOXICILLIN 500 MG CAPS 2 po BID x 10 days AMOXICILLIN 500 MG CAPS 671058 AMOXICILLIN Inactive AMOXICILLIN 500 MG CAPS 2 po BID x 10 days AMOXICILLIN 500 MG CAPS 650618 AMOXICILLIN Inactive LEVAQUIN 500 MG TAB 1 tablet by mouth daily LEVAQUIN 500 MG TAB 039247 LEVOFLOXACIN Inactive Advance Directives Directive Description Start [...] Measured Encounters Code Encounter Date Provider Facility CPT-61684 Level 3 Est. Patient 11:16:00 CDT Tosha De La Rosa [facility] CPT-61537 Level 3 Est. Patient 12:33:37 [employer] Jesus Spencer MD [facility] CPT-83177 Level 3 Est. Patient 17:40:56 CDT Belkys Van MD PhD [facility] CPT-17366 Level 3 Est. Patient 17:06:11 [employer] Belkys Van MD PhD [facility] CPT-37529 Level 3 Est. Patient 12:15:32 CDT Jesus Spencer MD [facility] CPT-60487 Level 3 Est. Patient 12:36:00 [employer] Zahira Grant [facility] CPT-00307 Level 3 Est. Patient 10:08:04 CDT Tobin Navarrete MD [facility] CPT-51445 Level 3 Est. 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
--- OUTSIDE RECORDS SUMMARY | 2018-02-21 10:34 | XMS REPORT | Clinical Summary ---
Author Author Admin, KENIA Organization [facility] Address Unknown Phone Unavailable Allergies, Adverse [...] of other medications V58.69 Active 12/08 Kaity MUJICAA Long-term (current) use of other medications Adult healthy physical V70.0 Active Cindy Deniseughan RMA Routine general medical examination at a health care facility Pharyngitis, acute / sore throat 462 Active Tosha De La Rosa APRN Acute pharyngitis OTITIS EXTERNA ICD-380.10 Inactive Belkys Van MD PhD FUNGAL DERMATITIS ICD-111.9 Inactive Tobin Navarrete MD SINUSITIS ICD-473.9 Inactive Belkys Van MD PhD COUGH ICD-786.2 Inactive Belkys Vna MD PhD 06/14 Sinusitis, acute ICD-461.9 Inactive Belkys Van MD PhD Medication List Medication Instructions Start Date Stop Date Generic Name NDC Status Provider Patient Instruction AMOXICILLIN-POT CLAVULANATE 875-125 MG ORAL TABLET 1 twice a day AMOXICILLIN-POT CLAVULANATE 47780933180 Active Tosha De La Rosa APRN Active TESSALON PERLES 100 MG ORAL CAPSULE 1 three times a day as needed for cough BENZONATATE 07870444850 Active SHYANNE Mariscal Active GUAIFENESIN-CODEINE 100-10 MG/5ML ORAL SYRUP 5ml every 4 to 6 hours as needed for cough GUAIFENESIN-CODEINE 45079315429 No Longer Active Tosha De La Rosa APRN Active AMOXICILLIN-POT CLAVULANATE 875-125 MG ORAL TABLET 1 twice a day AMOXICILLIN-POT CLAVULANATE 81742899860 No Longer Active Tosha De La Rosa APRN Active ZYRTEC ALLERGY 10 MG ORAL CAPSULE 1 po qd CETIRIZINE HCL 98008204041 No Longer Active Tosha De La Rosa APRN Active LEVAQUIN 500 MG ORAL TABLET 1 tablet by mouth daily LEVOFLOXACIN 14377142061 No Longer Active Belkys Van MD PhD Active CLOBETASOL PROPIONATE 0.05 % EXTERNAL CREAM apply daily CLOBETASOL PROPIONATE 79397789062 Active Belkys Van MD PhD Active LEVOXYL 75 MCG ORAL TABLET Take one by mouth daily LEVOTHYROXINE SODIUM 75067333279 Active Belkys Van MD PhD Active VITAMIN D3 1000 UNIT ORAL CAPSULE 1 po qd CHOLECALCIFEROL 84780524274 Active Belkys Van MD PhD Active LEXAPRO 10 MG ORAL TABLET 1 tablet by mouth daily ESCITALOPRAM OXALATE 10484551619 Active Belkys Van MD PhD Active SERTRALINE HCL 100 MG ORAL TABLET 1/2 tab daily SERTRALINE HCL 16283918272 No Longer Active Belkys Van MD PhD Active AMOXICILLIN 500 MG ORAL CAPSULE 2 po BID x 10 days AMOXICILLIN 17720228149 No Longer Active Belkys Van MD PhD Active FLUTICASONE PROPIONATE 50 MCG/ACT NASAL SUSPENSION 1 to 2 sprays each nostril daily FLUTICASONE PROPIONATE 88605936389 Active Belkys Van MD PhD Active RANITIDINE HCL 300 MG ORAL CAPSULE 1 tablet by mouth daily 06/14 RANITIDINE HCL 91793117151 No Longer Active Belkys Van MD PhD Active AMOXICILLIN 500 MG ORAL CAPSULE 2 po BID x 10 days AMOXICILLIN 87165934534 No Longer Active Jesus Spencer MD Active MEDROL 4 MG ORAL TABLET THERAPY PACK 6 tabs on day 1, 5 tabs on day 2, 4 tabs on day 3, 3 tabs on day 4, 2 tabs on day 5, 1 tab on day 6 METHYLPREDNISOLONE 61251731560 No Longer Active Zahira Grant APRN Active ZITHROMAX 250 MG ORAL TABLET 2 po today, then 1 po q days 2-5 AZITHROMYCIN 57435387771 No Longer Active Zahira Grant APRN Active CORTISPORIN 3.5-06456-0 OTIC SOLUTION 4gtts in affected ear QID x 7 days 2011 [id number] 99958468793 No Longer Active Zahira Grant APRN Active AMOXICILLIN 500 MG ORAL CAPSULE 1 tab by mouth 3 times daily 2012 AMOXICILLIN 16341759595 No Longer Active Tobin Navarrete MD Active CORTISPORIN 3.5-42803-5 OTIC SOLUTION 4gtts in affected ear QID x 7 days 2011 CORTISPORIN 3.5-05253-1 OTIC SOLUTION 632734 NEOMYCIN- POLYMYXIN-HC Inactive RANITIDINE HCL 300 MG ORAL CAPSULE 1 tablet by mouth daily 06/14 RANITIDINE HCL 300 MG ORAL CAPSULE 701732 RANITIDINE HCL Inactive SERTRALINE HCL 100 MG ORAL TABLET 1/2 tab daily SERTRALINE HCL 100 MG ORAL TABLET 927807 SERTRALINE HCL Inactive ZYRTEC ALLERGY 10 MG ORAL CAPSULE 1 po qd ZYRTEC ALLERGY 10 MG ORAL CAPSULE CETIRIZINE HCL Inactive AMOXICILLIN-POT CLAVULANATE 875-125 MG ORAL TABLET 1 twice a day AMOXICILLIN-POT CLAVULANATE 875-125 MG ORAL TABLET 710874 AMOXICILLIN-POT CLAVULANATE Inactive GUAIFENESIN-CODEINE 100-10 MG/5ML ORAL SYRUP 5ml every 4 to 6 hours as needed for cough GUAIFENESIN-CODEINE 100-10 MG/5ML ORAL SYRUP 425171 GUAIFENESIN-CODEINE Inactive AMOXICILLIN 500 MG ORAL CAPSULE 1 tab by mouth 3 times daily 2012 AMOXICILLIN 500 MG ORAL CAPSULE 261216 AMOXICILLIN Inactive ZITHROMAX 250 MG ORAL TABLET 2 po today, then 1 po q days 2-5 ZITHROMAX 250 MG ORAL TABLET 890250 AZITHROMYCIN Inactive MEDROL 4 MG ORAL TABLET THERAPY PACK 6 tabs on day 1, 5 tabs on day 2, 4 tabs on day 3, 3 tabs on day 4, 2 tabs on day 5, 1 tab on day 6 MEDROL 4 MG ORAL TABLET THERAPY PACK 767280 METHYLPREDNISOLONE Inactive AMOXICILLIN 500 MG ORAL CAPSULE 2 po BID x 10 days AMOXICILLIN 500 MG ORAL CAPSULE 865675 AMOXICILLIN Inactive AMOXICILLIN 500 MG ORAL CAPSULE 2 po BID x 10 days AMOXICILLIN 500 MG ORAL CAPSULE 353469 AMOXICILLIN Inactive LEVAQUIN 500 MG ORAL TABLET 1 tablet by mouth daily LEVAQUIN 500 MG ORAL TABLET 934825 LEVOFLOXACIN Inactive Advance Directives Directive Description Start [...] Measured Encounters Code Encounter Date Provider Facility CPT-60935 Level 3 Est. Patient 11:16:00 CDT Tosha De La Rosa [facility] CPT-63561 Level 3 Est. 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 Patient 17:40:56 CDT Belkys Van MD PhD [facility] CPT-18009 Level 3 Est. Patient 17:06:11 DISPLAY MAKER Belkys Van MD PhD [facility] CPT-89152 Level 3 Est. Patient 12:15:32 CDT Jesus Spencer MD [facility] CPT-04638 Level 3 Est. 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 Patient 10:08:04 CDT Tobin Navarrete MD [facility] CPT-39538 Level 3 Est. 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
--- OUTSIDE RECORDS SUMMARY | 2018-02-21 10:36 | XMS REPORT | Clinical Summary ---
Author Author Admin, KENIA Organization [facility] Address Unknown Phone Unavailable Allergies, Adverse [...] TABS 1 twice a day AMOXICILLIN-POT CLAVULANATE 28359609690 Active Tosha DeL a Rosa APRN Active TESSALON PERLES 100 MG CAPS 1 three times a day as needed for cough BENZONATATE 92185888518 Active Tosha De La Rosa APRN Active GUAIFENESIN-CODEINE 100-10 MG/5ML SYRP 5ml every 4 to 6 hours as needed for cough GUAIFENESIN-CODEINE 29712830656 No Longer Active Tosha De La Rosa APRN Active AMOXICILLIN-POT CLAVULANATE 875-125 MG TABS 1 twice a day AMOXICILLIN-POT CLAVULANATE 07089779071 No Longer Active Tosha De La Rosa APRN Active ZYRTEC ALLERGY 10 MG CAPS 1 po qd CETIRIZINE HCL 69936543009 No Longer Active Tosha De La Rosa APRN Active LEVAQUIN 500 MG TAB 1 tablet by mouth daily LEVOFLOXACIN 45731084279 No Longer Active Belkys Van MD PhD Active CLOBETASOL PROPIONATE 0.05 % EXT CREA apply daily CLOBETASOL PROPIONATE 00395767102 Active Belkys Van MD PhD Active LEVOXYL 75 MCG ORAL TABS Take one by mouth daily LEVOTHYROXINE SODIUM 25393543530 Active Belkys Van MD PhD Active VITAMIN D3 1000 UNIT CAPS 1 po qd CHOLECALCIFEROL 67446589265 Active Belkys Van MD PhD Active LEXAPRO 10 MG TABS 1 tablet by mouth daily ESCITALOPRAM OXALATE 67524250026 Active Belkys Van MD PhD Active SERTRALINE HCL 100 MG TABS 1/2 tab daily SERTRALINE HCL 78982107570 No Longer Active Belkys Van MD PhD Active AMOXICILLIN 500 MG CAPS 2 po BID x 10 days AMOXICILLIN 36933408049 No Longer Active Belkys Van MD PhD Active FLUTICASONE PROPIONATE 50 MCG/ACT SUSP 1 to 2 sprays each nostril daily FLUTICASONE PROPIONATE 42530450358 Active Belkys Van MD PhD Active RANITIDINE HCL 300 MG CAPS 1 tablet by mouth daily RANITIDINE HCL 20348810067 No Longer Active Belkys Van MD PhD Active AMOXICILLIN 500 MG CAPS 2 po BID x 10 days AMOXICILLIN 85503246857 No Longer Active Jesus Spencer MD Active MEDROL (ELIZABETH) 4 MG TABS 6 tabs on day 1, 5 tabs on day 2, 4 tabs on day 3, 3 tabs on day 4, 2 tabs on day 5, 1 tab on day 6 METHYLPREDNISOLONE 58020473441 No Longer Active Zahira Grant APRN Active ZITHROMAX 250 MG TAB 2 po today, then 1 po q days 2-5 AZITHROMYCIN 03942997067 No Longer Active Zahira Grant APRN Active CORTISPORIN 3.5-96950-3 SOLN 4gtts in affected ear QID x 7 days [id number] 82467066685 No Longer Active Zahira Grant APRN Active AMOXICILLIN 500 MG CAP 1 tab by mouth 3 times daily AMOXICILLIN 60723580894 No Longer Active Tobin Navarrete MD Active CORTISPORIN 3.5-23448-1 SOLN 4gtts in affected ear QID x 7 days CORTISPORIN 3.5-55878-6 SOLN 439146 [id number] Inactive RANITIDINE HCL 300 MG CAPS 1 tablet by mouth daily RANITIDINE HCL 300 MG CAPS 639962 RANITIDINE HCL Inactive SERTRALINE HCL 100 MG TABS 1/2 tab daily SERTRALINE HCL 100 MG TABS 297468 SERTRALINE HCL Inactive ZYRTEC ALLERGY 10 MG CAPS 1 po qd ZYRTEC ALLERGY 10 MG CAPS CETIRIZINE HCL Inactive AMOXICILLIN-POT CLAVULANATE 875-125 MG TABS 1 twice a day AMOXICILLIN-POT CLAVULANATE 875-125 MG TABS 959349 AMOXICILLIN-POT CLAVULANATE Inactive GUAIFENESIN-CODEINE 100-10 MG/5ML SYRP 5ml every 4 to 6 hours as needed for cough GUAIFENESIN-CODEINE 100-10 MG/5ML SYRP 058308 GUAIFENESIN-CODEINE Inactive AMOXICILLIN 500 MG CAP 1 tab by mouth 3 times daily AMOXICILLIN 500 MG CAP 819114 AMOXICILLIN Inactive ZITHROMAX 250 MG TAB 2 po today, then 1 po q days 2-5 ZITHROMAX 250 MG TAB 9010807 AZITHROMYCIN Inactive MEDROL (ELIZABETH) 4 MG TABS 6 tabs on day 1, 5 tabs on day 2, 4 tabs on day 3, 3 tabs on day 4, 2 tabs on day 5, 1 tab on day 6 MEDROL ( ELIZABETH) 4 MG TABS 569919 METHYLPREDNISOLONE Inactive AMOXICILLIN 500 MG CAPS 2 po BID x 10 days AMOXICILLIN 500 MG CAPS 508471 AMOXICILLIN Inactive AMOXICILLIN 500 MG CAPS 2 po BID x 10 days AMOXICILLIN 500 MG CAPS 177452 AMOXICILLIN Inactive LEVAQUIN 500 MG TAB 1 tablet by mouth daily LEVAQUIN 500 MG TAB 160223 LEVOFLOXACIN Inactive Advance Directives Directive Description Start [...] ... - Chemistry sodium, serum 141 mmol/L 636-940 1511/07/25 carbon dioxide, venous blood 30.6 mmol/L 21.0-32.0 [...] 0.95 ng/dL 0.76-1.46 cholesterol, serum 164 mg/dL 086-134 3508/07/25 triglyceride, serum, fasting 100 mg/dL 30-200 HDL cholesterol, serum 51 mg/dL 32-96 LDL cholesterol, serum 93 mg/dL 0-130 Lab Report: CBC W/DIFF, Comp. Metabolic Panel, Thyroid Stimulating Hormo ... - Hematology erythrocyte (RBC) count 4.48 10^6/MM^3 10*6/mm3 4.04-5.48 lymphocytes as percent of blood leukocytes 25.9 % 20.5-51.1 monocytes as percent of blood leukocytes 5.3 % 1.7-9.3 neutrophils as percent of blood leukocytes 64.9 % 42.2-75.2 leukocyte count, blood 5.1 10^3/MM^3 10*3/mm3 4.6-10.2 hemoglobin, blood 12.7 g/dL 12.0-16.0 hematocrit, blood 39.0 % 36.0-46.0 mean corpuscular volume, RBC 87 fL 80-97 mean corpuscular hemoglobin, RBC 28.5 pg 27.0-31.2 mean corpuscular hemoglobin concentration, RBC 32.7 G/DL % 31.8- 35.4 red blood cell distribution width 15.3 % 11.6-14.8 platelet count 279 10^3/MM^3 10*3/mm3 142-424 Encounters Code Encounter Date Provider Facility CPT-36490 Level 3 Est. Patient 11:16:00 CDT Tosha De La Rosa APRN [facility] CPT-74382 Level 3 Est. Patient 12:33:37 PROGRESSIVE CARE NURSE Jesus Spencer MD [facility] CPT-92929 Level 3 Est. Patient 17:40:56 CDT Belkys Van MD PhD [facility] CPT-12345 Level 3 Est. Patient 17:06:11 PROGRESSIVE CARE NURSE Belkys Van MD PhD [facility] CPT-92443 Level 3 Est. Patient 12:15:32 CDT Jesus Spencer MD [facility] CPT-63079 Level 3 Est. Patient 12:36:00 PROGRESSIVE CARE NURSE Zahira Grant APRN [facility] CPT-34622 Level 3 Est. Patient 10:08:04 CDT Tobin Navarrete MD [facility] CPT-35404 Level 3 Est. Patient 18:50:31 PROGRESSIVE CARE NURSE Tobin Navarrete MD [facility] CPT-47771 Level 2 New Patient 12:45:04 CDT Jesus Spencer MD [facility] Procedures Code Procedure Name Date Entry Date Standard Description CPT-94900 Chest 2V Frontal and Lat - XRAY USE ONLY 17:12:28 CDT CPT-52162 Chest 2V Frontal and Lat - XRAY USE ONLY 17:07:35 CDT CPT-84713 Venipuncture Draw Fee 10:30:24 CDT CPT-57017 Venipuncture Draw Fee 16:14:07 CDT CPT-71412 TB Tubersol 16:59:46 CDT
--- OUTSIDE RECORDS SUMMARY | 2018-02-21 10:37 | XMS REPORT | Clinical Summary ---
Author Author Admin, KENIA Organization [facility] Address Unknown Phone Unavailable Allergies, Adverse [...] TABS 1 twice a day AMOXICILLIN-POT CLAVULANATE 56864005734 Active Tosha De La Rosa APRN Active TESSALON PERLES 100 MG CAPS 1 three times a day as needed for cough BENZONATATE 63434035477 Active Tosha De La Rosa APRN Active GUAIFENESIN-CODEINE 100-10 MG/5ML SYRP 5ml every 4 to 6 hours as needed for cough GUAIFENESIN-CODEINE 03904075030 No Longer Active Tosha De La Rosa APRN Active AMOXICILLIN-POT CLAVULANATE 875-125 MG TABS 1 twice a day AMOXICILLIN-POT CLAVULANATE 92786645135 No Longer Active Tosha De La Rosa APRN Active ZYRTEC ALLERGY 10 MG CAPS 1 po qd CETIRIZINE HCL 45562922179 No Longer Active Tosha De La Rosa APRN Active LEVAQUIN 500 MG TAB 1 tablet by mouth daily LEVOFLOXACIN 75979788904 No Longer Active Belkys Van MD PhD Active CLOBETASOL PROPIONATE 0.05 % EXT CREA apply daily CLOBETASOL PROPIONATE 84787503015 Active Belkys Van MD PhD Active LEVOXYL 75 MCG ORAL TABS Take one by mouth daily LEVOTHYROXINE SODIUM 94624621495 Active Belkys Van MD PhD Active VITAMIN D3 1000 UNIT CAPS 1 po qd CHOLECALCIFEROL 00757058184 Active Belkys Van MD PhD Active LEXAPRO 10 MG TABS 1 tablet by mouth daily ESCITALOPRAM OXALATE 46945597346 Active Belkys Van MD PhD Active SERTRALINE HCL 100 MG TABS 1/2 tab daily SERTRALINE HCL 98892185785 No Longer Active Belkys Van MD PhD Active AMOXICILLIN 500 MG CAPS 2 po BID x 10 days AMOXICILLIN 96623814217 No Longer Active Belkys Van MD PhD Active FLUTICASONE PROPIONATE 50 MCG/ACT SUSP 1 to 2 sprays each nostril daily FLUTICASONE PROPIONATE 58488205622 Active Belkys Van MD PhD Active RANITIDINE HCL 300 MG CAPS 1 tablet by mouth daily RANITIDINE HCL 22640192658 No Longer Active Belkys Van MD PhD Active AMOXICILLIN 500 MG CAPS 2 po BID x 10 days AMOXICILLIN 34656972912 No Longer Active Jesus Spencer MD Active MEDROL (ELIZABETH) 4 MG TABS 6 tabs on day 1, 5 tabs on day 2, 4 tabs on day 3, 3 tabs on day 4, 2 tabs on day 5, 1 tab on day 6 METHYLPREDNISOLONE 48393893986 No Longer Active Zahira Grant APRN Active ZITHROMAX 250 MG TAB 2 po today, then 1 po q days 2-5 AZITHROMYCIN 89983844455 No Longer Active Zahira Grant APRN Active CORTISPORIN 3.5-94584-5 SOLN 4gtts in affected ear QID x 7 days [id number] 24925416011 No Longer Active Zahira Grant APRN Active AMOXICILLIN 500 MG CAP 1 tab by mouth 3 times daily AMOXICILLIN 62375155654 No Longer Active Tobin Navarrete MD Active CORTISPORIN 3.5-05057-5 SOLN 4gtts in affected ear QID x 7 days CORTISPORIN 3.5-17663-1 SOLN 677063 [id number] Inactive RANITIDINE HCL 300 MG CAPS 1 tablet by mouth daily RANITIDINE HCL 300 MG CAPS 152923 RANITIDINE HCL Inactive SERTRALINE HCL 100 MG TABS 1/2 tab daily SERTRALINE HCL 100 MG TABS 309679 SERTRALINE HCL Inactive ZYRTEC ALLERGY 10 MG CAPS 1 po qd ZYRTEC ALLERGY 10 MG CAPS CETIRIZINE HCL Inactive AMOXICILLIN-POT CLAVULANATE 875-125 MG TABS 1 twice a day AMOXICILLIN-POT CLAVULANATE 875-125 MG TABS 145362 AMOXICILLIN-POT CLAVULANATE Inactive GUAIFENESIN-CODEINE 100-10 MG/5ML SYRP 5ml every 4 to 6 hours as needed for cough GUAIFENESIN-CODEINE 100-10 MG/5ML SYRP 506472 GUAIFENESIN-CODEINE Inactive AMOXICILLIN 500 MG CAP 1 tab by mouth 3 times daily AMOXICILLIN 500 MG CAP 591813 AMOXICILLIN Inactive ZITHROMAX 250 MG TAB 2 po today, then 1 po q days 2-5 ZITHROMAX 250 MG TAB 7917777 AZITHROMYCIN Inactive MEDROL (ELIZABETH) 4 MG TABS 6 tabs on day 1, 5 tabs on day 2, 4 tabs on day 3, 3 tabs on day 4, 2 tabs on day 5, 1 tab on day 6 MEDROL ( ELIZABETH) 4 MG TABS 354213 METHYLPREDNISOLONE Inactive AMOXICILLIN 500 MG CAPS 2 po BID x 10 days AMOXICILLIN 500 MG CAPS 575030 AMOXICILLIN Inactive AMOXICILLIN 500 MG CAPS 2 po BID x 10 days AMOXICILLIN 500 MG CAPS 023499 AMOXICILLIN Inactive LEVAQUIN 500 MG TAB 1 tablet by mouth daily LEVAQUIN 500 MG TAB 992893 LEVOFLOXACIN Inactive Advance Directives Directive Description Start [...] ... - Chemistry sodium, serum 141 mmol/L 906-138 7984/07/25 carbon dioxide, venous blood 30.6 mmol/L 21.0-32.0 [...] 0.95 ng/dL 0.76-1.46 cholesterol, serum 164 mg/dL 543-871 4208/07/25 triglyceride, serum, fasting 100 mg/dL 30-200 HDL [...] 142-424 Encounters Code Encounter Date Provider Facility CPT-43068 Level 3 Est. Patient 11:16:00 CDT Tosha De La Rosa APRN [facility] CPT-90801 Level 3 Est. Patient 12:33:37 WET TRIMMER Jesus Spencer MD [facility] CPT-94741 Level 3 Est. Patient 17:40:56 CDT Belkys Van MD PhD [facility] CPT-94517 Level 3 Est. Patient 17:06:11 WET TRIMMER Belkys Van MD PhD [facility] CPT-08144 Level 3 Est. Patient 12:15:32 CDT Jesus Spencer MD [facility] CPT-18092 Level 3 Est. Patient 12:36:00 WET TRIMMER Zahira Grant APRN [facility] CPT-97329 Level 3 Est. Patient 10:08:04 CDT Tobin Navarrete MD [facility] CPT-39654 Level 3 Est. Patient 18:50:31 WET TRIMMER Tobin Navarrete MD [facility] CPT-72189 Level 2 New Patient 12:45:04 CDT Jesus Spencer MD [facility] Procedures Code Procedure Name Date Entry Date Standard Description CPT-25124 Chest 2V Frontal and Lat - XRAY USE ONLY 17:12:28 CDT CPT-91722 Chest 2V Frontal and Lat - XRAY USE ONLY 17:07:35 CDT CPT-07947 Venipuncture Draw Fee 10:30:24 CDT CPT-83365 Venipuncture Draw Fee 16:14:07 CDT CPT-70602 TB Tubersol 16:59:46 CDT
--- OUTSIDE RECORDS SUMMARY | 2018-02-21 10:40 | XMS REPORT | Clinical Summary ---
Author Author Admin, KENIA Organization [facility] Address Unknown Phone Unavailable Allergies, Adverse Reactions, [...] Tosha De La Rosa APRN Acute pharyngitis FUNGAL DERMATITIS ICD-111.9 Inactive Tobin Navarrete MD SINUSITIS ICD-473.9 Inactive Belkys Van MD PhD COUGH ICD-786.2 Inactive Belkys Van MD PhD 06/14 OTITIS EXTERNA ICD-380.10 Inactive Belkys Van MD PhD Sinusitis, acute ICD-461.9 Inactive Belkys Van MD PhD Medication List Medication Instructions Start Date Stop Date Generic Name NDC Status Provider Patient Instruction AMOXICILLIN-POT CLAVULANATE 875-125 MG TABS 1 twice a day AMOXICILLIN-POT CLAVULANATE 89493462961 Active Tosha De La Rosa APRN Active TESSALON PERLES 100 MG CAPS 1 three times a day as needed for cough BENZONATATE 71073330838 Active Tosha De La Rosa APRN Active GUAIFENESIN-CODEINE 100-10 MG/5ML SYRP 5ml every 4 to 6 hours as needed for cough GUAIFENESIN-CODEINE 41448784860 No Longer Active Tosha De La Rosa APRN Active AMOXICILLIN-POT CLAVULANATE 875-125 MG TABS 1 twice a day AMOXICILLIN-POT CLAVULANATE 26452131883 No Longer Active Tosha De La Rosa APRN Active ZYRTEC ALLERGY 10 MG CAPS 1 po qd CETIRIZINE HCL 73322143035 No Longer Active Tosha De La Rosa APRN Active LEVAQUIN 500 MG TAB 1 tablet by mouth daily LEVOFLOXACIN 77297869997 No Longer Active Belkys Van MD PhD Active CLOBETASOL PROPIONATE 0.05 % EXT CREA apply daily CLOBETASOL PROPIONATE 97613329284 Active Belkys Van MD PhD Active LEVOXYL 75 MCG ORAL TABS Take one by mouth daily LEVOTHYROXINE SODIUM 29979870598 Active Belkys Van MD PhD Active VITAMIN D3 1000 UNIT CAPS 1 po qd CHOLECALCIFEROL 58688563188 Active Belkys Van MD PhD Active LEXAPRO 10 MG TABS 1 tablet by mouth daily ESCITALOPRAM OXALATE 52459257474 Active Belkys Van MD PhD Active SERTRALINE HCL 100 MG TABS 1/2 tab daily SERTRALINE HCL 65023856997 No Longer Active Belkys aVn MD PhD Active AMOXICILLIN 500 MG CAPS 2 po BID x 10 days AMOXICILLIN 53013854461 No Longer Active Belkys Van MD PhD Active FLUTICASONE PROPIONATE 50 MCG/ACT SUSP 1 to 2 sprays each nostril daily FLUTICASONE PROPIONATE 92663849234 Active Belkys Van MD PhD Active RANITIDINE HCL 300 MG CAPS 1 tablet by mouth daily RANITIDINE HCL 73262704853 No Longer Active Belkys Van MD PhD Active AMOXICILLIN 500 MG CAPS 2 po BID x 10 days AMOXICILLIN 02135266998 No Longer Active Jesus Spencer MD Active MEDROL (ELIZABETH) 4 MG TABS 6 tabs on day 1, 5 tabs on day 2, 4 tabs on day 3, 3 tabs on day 4, 2 tabs on day 5, 1 tab on day 6 METHYLPREDNISOLONE 77906855515 No Longer Active Zahira Grant APRN Active ZITHROMAX 250 MG TAB 2 po today, then 1 po q days 2-5 AZITHROMYCIN 48274189774 No Longer Active Zahira Grant APRN Active CORTISPORIN 3.5-27010-6 SOLN 4gtts in affected ear QID x 7 days [id number] 89346813550 No Longer Active Zahira Grant APRN Active AMOXICILLIN 500 MG CAP 1 tab by mouth 3 times daily AMOXICILLIN 51413833346 No Longer Active Tobin Navarrete MD Active CORTISPORIN 3.5-69221-9 SOLN 4gtts in affected ear QID x 7 days CORTISPORIN 3.5-84477-0 SOLN 012856 [id number] Inactive RANITIDINE HCL 300 MG CAPS 1 tablet by mouth daily RANITIDINE HCL 300 MG CAPS 388076 RANITIDINE HCL Inactive SERTRALINE HCL 100 MG TABS 1/2 tab daily SERTRALINE HCL 100 MG TABS 239814 SERTRALINE HCL Inactive ZYRTEC ALLERGY 10 MG CAPS 1 po qd ZYRTEC ALLERGY 10 MG CAPS CETIRIZINE HCL Inactive AMOXICILLIN-POT CLAVULANATE 875-125 MG TABS 1 twice a day AMOXICILLIN-POT CLAVULANATE 875-125 MG TABS 674492 AMOXICILLIN-POT CLAVULANATE Inactive GUAIFENESIN-CODEINE 100-10 MG/5ML SYRP 5ml every 4 to 6 hours as needed for cough GUAIFENESIN-CODEINE 100-10 MG/5ML SYRP 695331 GUAIFENESIN-CODEINE Inactive AMOXICILLIN 500 MG CAP 1 tab by mouth 3 times daily AMOXICILLIN 500 MG CAP 955832 AMOXICILLIN Inactive ZITHROMAX 250 MG TAB 2 po today, then 1 po q days 2-5 ZITHROMAX 250 MG TAB 9236102 AZITHROMYCIN Inactive MEDROL (ELIZABETH) 4 MG TABS 6 tabs on day 1, 5 tabs on day 2, 4 tabs on day 3, 3 tabs on day 4, 2 tabs on day 5, 1 tab on day 6 MEDROL ( ELIZABETH) 4 MG TABS 626372 METHYLPREDNISOLONE Inactive AMOXICILLIN 500 MG CAPS 2 po BID x 10 days AMOXICILLIN 500 MG CAPS 869088 AMOXICILLIN Inactive AMOXICILLIN 500 MG CAPS 2 po BID x 10 days AMOXICILLIN 500 MG CAPS 476102 AMOXICILLIN Inactive LEVAQUIN 500 MG TAB 1 tablet by mouth daily LEVAQUIN 500 MG TAB 986807 LEVOFLOXACIN Inactive Advance Directives Directive Description Start [...] ... - Chemistry sodium, serum 141 mmol/L 021-603 5216/07/25 carbon dioxide, venous blood 30.6 mmol/L 21.0-32.0 [...] 0.95 ng/dL 0.76-1.46 cholesterol, serum 164 mg/dL 225-018 7984/07/25 triglyceride, serum, fasting 100 mg/dL 30-200 HDL [...] 142-424 Encounters Code Encounter Date Provider Facility CPT-48283 Level 3 Est. Patient 11:16:00 CDT Tosha De La Rosa APRN [facility] CPT-49620 Level 3 Est. Patient 12:33:37 EXHIBITS COORDINATOR Jesus Spencer MD [facility] CPT-33142 Level 3 Est. Patient 17:40:56 CDT Belkys Van MD PhD [facility] CPT-76057 Level 3 Est. Patient 17:06:11 EXHIBITS COORDINATOR Belkys Van MD PhD [facility] CPT-54204 Level 3 Est. Patient 12:15:32 CDT Jesus Spencer MD [facility] CPT-46170 Level 3 Est. Patient 12:36:00 EXHIBITS COORDINATOR Zahira Grant APRN [facility] CPT-86159 Level 3 Est. Patient 10:08:04 CDT Tobin Navarrete MD [facility] CPT-66726 Level 3 Est. Patient 18:50:31 EXHIBITS COORDINATOR Tobin Navarrete MD [facility] CPT-74268 Level 2 New Patient 12:45:04 CDT Jesus Spencer MD [facility] Procedures Code Procedure Name Date Entry Date Standard Description CPT-43661 Chest 2V Frontal and Lat - XRAY USE ONLY 17:12:28 CDT CPT-34251 Chest 2V Frontal and Lat - XRAY USE ONLY 17:07:35 CDT CPT-23554 Venipuncture Draw Fee 10:30:24 CDT CPT-34345 Venipuncture Draw Fee 16:14:07 CDT CPT-95174 TB Tubersol 16:59:46 CDT
--- OUTSIDE RECORDS SUMMARY | 2018-02-21 10:41 | XMS REPORT | CCD ---
Author Author Roxie Farmer Organization Roxie Farmer MD, [facility] Address [address] [place] [address] Phone Care Team Providers Care Student Services Vice President Name Role Phone PP Unavailable CCM Unavailable Summary Purpose Interface Exchange Insurance Providers Payer name Policy type / Coverage type Covered alliance party ID Effective Begin Date Effective End Date Blue Cross Blue [facility] Blue Cross/Blue Shield [id number] Unknown Unknown Family history Mother Diagnosis Age At Onset Cancer Unknown Brother Diagnosis Age At Onset Diabetes Unknown Social History Social History Element Codes Description Effective Dates Marital status Unknown 11/04/2013 Number of children Unknown 2 11/04/2013 Education level Unknown College Graduate 11/04/2013 Employment Unknown Currently employed [employer] in [place] 11/04/[address]: 404254683 Never smoker 11/04/2013 Allergies, Adverse Reactions, Alerts Allergies, Adverse Reactions, Alerts data not found Past Medical History Illness Codes Condition Status Onset Date Resolved Date Atrophy of thyroid (acquired) ICD-9: 244.8 ICD-10: E03.4 Active 10/22/2016 Unknown Major depressive disorder, recurrent, moderate ICD-9: 296.32 ICD-10: F33.1 Active 03/19/2017 Unknown Encounter for general adult medical examination with abnormal findings ICD-9: V70.0 ICD-10: Z00.01 Active 02/21/2017 Unknown Diaphragmatic hernia without obstruction or gangrene ICD-9: 553.3 ICD-10: K44.9 Active 10/22/2016 Unknown Encounter for general adult medical examination without abnormal findings ICD-9: V70.0 ICD-10: Z00.00 Active 11/21/2015 Unknown Hypothyroidism, unspecified ICD-9: 244.9 ICD-10: E03.9 Active 11/04/2013 Unknown Well woman exam with routine gynecological exam ICD-9: V72.31 Active 11/25/2013 Unknown OTH SCREENING MAMMOGRAM ICD-9: V76.12 Active 12/12/2014 Unknown Depression Unknown Active 11/04/2013 Unknown Hypothryroidism Unknown Active 11/04/2013 Unknown Hypothyroid Unknown Active 11/04/2013 Unknown Lichen planus Unknown Active 11/04/2013 Unknown Restless leg syndrome Unknown Active 11/04/2013 Unknown Varicose veins Unknown Active 11/04/2013 Unknown COMPLICATED VARICOSE VEINS ICD-9: 454.8 Active 11/04/2013 Unknown DEPRESSIVE DISORDER NEC ICD-9: 311 Active 11/04/2013 Unknown HYPOTHYROIDISM ICD-9: 244.9 Active 11/04/2013 Unknown Lichen sclerosus et atrophicus ICD-9: 701.0 Active 11/04/2013 Unknown Restless leg syndrome ICD-9: 333.94 Active 11/04/2013 Unknown Problems Condition Codes Effective Dates Condition Status Atrophy of thyroid (acquired) ICD-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 ICD-10: E03.4 10/22/2016 Active Major depressive disorder, recurrent, moderate ICD-9: 296.32 ICD-10: F33.1 03/19/2017 Active Encounter for general adult medical examination with abnormal findings ICD-9: V70.0 ICD-10: Z00.01 02/21/2017 Active Diaphragmatic hernia without obstruction or gangrene ICD-9: 553.3 ICD-10: K44.9 10/22/2016 Active Encounter for general adult medical examination without abnormal findings ICD-9: V70.0 ICD-10: Z00.00 11/21/2015 Active Hypothyroidism, unspecified ICD-9: 244.9 ICD-10: E03.9 11/04/2013 Active Well woman exam with routine gynecological exam ICD-9: V72.31 11/25/2013 Active OTH SCREENING MAMMOGRAM ICD-9: V76.12 12/12/2014 Active Depression Unknown 11/04/2013 Active Hypothryroidism Unknown 11/04/2013 Active Hypothyroid Unknown 11/04/2013 Active Lichen planus Unknown 11/04/2013 Active Restless leg syndrome Unknown 11/04/2013 Active Varicose veins Unknown 11/04/2013 Active COMPLICATED VARICOSE VEINS ICD-9: 454.8 11/04/2013 Active DEPRESSIVE DISORDER NEC ICD-9: 311 11/04/2013 Active HYPOTHYROIDISM ICD-9: 244.9 11/04/2013 Active Lichen sclerosus et atrophicus ICD-9: 701.0 11/04/2013 Active Restless leg syndrome ICD-9: 333.94 11/04/2013 Active Medications Medication Codes Instructions Start Date Stop Date Status Fill Instructions escitalopram 20 mg tablet RxNorm: 726988 TAKE ONE TABLET BY MOUTH ONCE DAILY 06/24/2017 No Stop Date Active levothyroxine 75 mcg tablet RxNorm: 290508 TAKE ONE TABLET BY MOUTH ONCE DAILY 04/22/2017 No Stop Date Active Durezol 0.05 % eye drops RxNorm: 783104 Drop(s) ophthalmic (eye) BID 03/19/2017 04/17/2017 Inactive Estrace 0.01% (0.1 mg/gram) vaginal cream RxNorm: 246230 1 Application VAG BIW 10/22/2016 07/18/2017 Active meclizine 25 mg tablet RxNorm: 636121 1/2 - 1 Tablet(s) PO TID as needed vertigo 10/22/2016 12/20/2016 Inactive escitalopram 20 mg tablet RxNorm: 508286 Tablet(s) TAKE ONE TABLET BY MOUTH ONCE DAILY 10/11/2016 04/08/2017 Inactive levothyroxine 75 mcg tablet RxNorm: 964764 TAKE ONE TABLET BY MOUTH ONCE DAILY 09/14/2016 03/12/2017 Inactive escitalopram 20 mg tablet RxNorm: 760828 TAKE ONE TABLET BY MOUTH ONCE DAILY 05/21/2016 10/10/2016 Inactive Flonase 50 mcg/actuation nasal spray,suspension RxNorm: 0885738 USE ONE SPRAY(S) IN EACH NOSTRIL TWICE DAILY 02/09/201611/2016 Inactive levothyroxine 75 mcg tablet RxNorm: 540927 TAKE ONE TABLET BY MOUTH ONCE DAILY 01/26/2016 07/23/2016 Inactive estradiol 0.5 mg tablet RxNorm: 655895 PLACE ONE TABLET VAGINALLY DAILY 12/26/2015 10/21/2016 Inactive escitalopram 20 mg tablet RxNorm: 297932 TAKE ONE TABLET BY MOUTH ONCE DAILY 12/26/2015 03/24/2016 Inactive clobetasol 0.05 % topical cream RxNorm: 314225 1 Application TOP PRN as needed 11/22/2015 No Stop Date Active Vitamin D2 50,000 unit capsule RxNorm: 926567 1 Capsule(s) PO QW 11/22/2015 02/19/2016 Inactive one weekly x 8 weeksalso vitamin d 2000 units daily Flonase 50 mcg/actuation nasal spray,suspension RxNorm: 4169342 1 [place] NASAL BID 10/17/2015 12/15/2015 Inactive Flonase 50 mcg/actuation nasal spray,suspension RxNorm: 165182 1 [place] NASAL BID 08/02/2015 09/30/2015 Inactive Flonase 50 mcg/actuation nasal spray,suspension RxNorm: 308993 1 [place] NASAL BID 04/27/2015 06/25/2015 Inactive estradiol 0.5 mg tablet RxNorm: 578153 1 Tablet(s) VAG daily 12/17/2015 Inactive levothyroxine 75 mcg tablet RxNorm: 994241 1 Tablet(s) PO daily 12/23/2014 12/17/2015 Inactive escitalopram 20 mg tablet RxNorm: 438075 1 Tablet(s) PO daily 12/23/2014 09/18/2015 Inactive Flonase 50 mcg/actuation nasal spray,suspension RxNorm: 223618 1 [place] NASAL BID 12/23/2014 02/20/2015 Inactive clobetasol 0.05 % topical cream RxNorm: 737644 1 Application TOP PRN as needed 12/23/2014 11/21/2015 Inactive Flonase 50 mcg/actuation nasal spray,suspension RxNorm: 337189 1 [place] NASAL BID 09/14/2014 11/12/2014 Inactive Flonase 50 mcg/actuation nasal spray,suspension RxNorm: 326962 1 [place] NASAL BID 09/10/2014 09/13/2014 Inactive Flonase 50 mcg/actuation nasal spray,suspension RxNorm: 095504 1 [place] NASAL BID 11/25/2013 03/24/2014 Inactive levothyroxine 75 mcg tablet RxNorm: 372491 1 Tablet(s) PO daily 11/25/2013 11/19/2014 Inactive levothyroxine 50 mcg capsule RxNorm: 280844 1 Capsule(s) PO daily 11/11/2013 11/24/2013 Inactive Vitamin D2 50,000 unit capsule RxNorm: 733855 1 Capsule(s) PO QW 11/11/2013 11/21/2015 Inactive one weekly x 8 weeksalso vitamin d 2000 units daily escitalopram 10 mg tablet RxNorm: 427993 1 Tablet(s) PO QPM 09/201312/22/2014 Inactive estradiol 0.5 mg tablet RxNorm: 441890 1 Tablet(s) VAG daily 10/29/2014 Inactive clobetasol 0.05 % topical cream RxNorm: 158885 1 Application TOP PRN 11/04/2013 12/22/2014 Inactive levothyroxine 50 mcg capsule RxNorm: 382731 1 Capsule(s) PO daily No Start Date 11/10/2013 Inactive Vitamin D2 50,000 unit capsule RxNorm: 029144 1 Capsule(s) PO QW No Start Date 11/10/2013 Inactive Medication Administered No Medication Administered data Immunizations Vaccine Codes Date Status Tetanus, Diptheria, Pertussis CVX: 113 completed Tetanus/Diptheria CVX: 113 02/01/2013 completed Assessments Condition Codes Effective Dates Atrophy of thyroid (acquired) ICD-10: E03.4 ICD-9: 244.8 03/19/2017 Major depressive disorder, recurrent, moderate ICD-10: F33.1 ICD-9: 296.32 03/19/2017 Encounter for general adult medical examination with abnormal findings ICD-10: Z00.01 ICD-9: V70.0 02/21/2017 Diaphragmatic hernia without obstruction or gangrene ICD-10 : K44.9 ICD-9: 553.3 10/22/2016 Encounter for general adult medical examination without abnormal findings ICD-10: Z00.00 ICD-9: V70.0 11/22/2015 Hypothyroidism, unspecified ICD-10: E03.9 ICD-9: 244.9 11/22/2015 Well woman exam with routine gynecological exam ICD-9: V72.31 12/23/2014 [facility] SCREENING MAMMOGRAM ICD-9: V76.12 Lichen sclerosus et atrophicus ICD-9: 701.0 11/04/2013 HYPOTHYROIDISM ICD-9: 244.9 11/04/2013 COMPLICATED VARICOSE VEINS ICD-9: 454.8 11/04/2013 Restless leg syndrome ICD-9: 333.94 11/04 DEPRESSIVE DISORDER NEC ICD-9: 311 2013 Reason For Visit Reason For Visit Effective Dates Notes well woman exam (40-65 years) 03/19/2017 hypothyroid 02/21/2017 hypothyroid 10/22/2016 hyperthyroidism 11/22/2015 well woman exam (40-65 years) 12/23/2014 well woman exam (40-65 years) 11/25/2013 ~generic 11/04/2013 numbness in hands, is on synthroid for this Results Observation Observation Code Item Item Code Result Date Free T4 [id number] FREE T4 0.97 ng/dL 02/21/2017 Tsh Ord6 hTSH II 1.42 uIU/mL 02/21/2017 Comp Metabolic Noh455 NA 138 mEq/L 02/21/2017 Comp Metabolic Ybb153 K 4.4 mEq/L 02/21/2017 Comp Metabolic Rls843 CL 101 mEq/L 02/21/2017 Comp Metabolic Qcs035 CO2 29.0 mEq/L 02/21/2017 Comp Metabolic Nmf624 ANION GAP 12 02/21/2017 Comp Metabolic Dqi113 GLUCOSE 79 mg/dL 02/21/2017 Comp Metabolic Geo354 Creat 0.8 mg/dL 02/21/2017 Comp Metabolic Ufn514 eGFR 79 ml/min/1.73m2 02/21/2017 Comp Metabolic Wtk636 BUN 15 mg/dL 02/21/2017 Comp Metabolic Swv744 B/C Ratio 19.2 Ratio 02/21/2017 Comp Metabolic Fop345 CALCIUM 8.9 mg/dL 02/21/2017 Comp Metabolic Xlz884 ALK PHOS 62 U/L 02/21/2017 Comp Metabolic Iby868 AST(SGOT) 16 U/L 02/21/2017 Comp Metabolic Zke264 ALT(SGPT) 14 U/L 02/21/2017 Comp Metabolic Rgn196 BILI T 0.6 mg/dL 02/21/2017 Comp Metabolic Aan819 ALBUMIN 4.0 g/dL 02/21/2017 Comp Metabolic Hif414 TPRO 6.5 g/dL 02/21/2017 Comp Metabolic Pef252 GLOB 2.5 g/dL 02/21/2017 Comp Metabolic Bdf738 A/G Ratio 1.6 Ratio 02/21/2017 Comp Metabolic Zwj252 Osmo 275 mOsmo 02/21/2017 Lipid Ord30 CHOL 155 mg/dL 02/21/2017 Lipid Ord30 HDL 47.0 mg/dl 02/21/2017 Lipid Ord30 TRIG 96 mg/dL 02/21/2017 Lipid Ord30 LDL 89 mg/dL 02/21/2017 Lipid Ord30 C/HDL 3.3 Ratio 02/21/2017 Cbc With Differential Ord2 WBC 5.58 K/ul 02/21/2017 Cbc With Differential Ord2 RBC 4.46 M/ul 02/21/2017 Cbc With Differential Ord2 HGB 12.7 g/dl 02/21/2017 Cbc With Differential Ord2 HCT 40.4 % 02/21/2017 Cbc With Differential Ord2 Neut% 62.6 % 02/21/2017 Cbc With Differential Ord2 MCV 90.6 fl 02/21/2017 Cbc With Differential Ord2 Lymph% 26.9 % 02/21/2017 Cbc With Differential Ord2 MCH 28.5 pg 02/21/2017 Cbc With Differential Ord2 [place]% 7.7 % 02/21/2017 Cbc With Differential Ord2 Eos% 2.3 % 02/21/2017 Cbc With Differential Ord2 MCHC 31.4 pg 02/21/2017 Cbc With Differential Ord2 Baso% 0.5 % 02/21/2017 Cbc With Differential Ord2 PLT 240 K/ul 02/21/2017 Cbc With Differential Ord2 RDW 13.5 % 02/21/2017 Cbc With Differential Ord2 Neut ABS# 3.49 K/ul 02/21/2017 Cbc With Differential Ord2 Lymph ABS# 1.50 K/ul 02/21/2017 Cbc With Differential Ord2 [place] ABS# 0.4 K/ul 02/21/2017 Cbc With Differential Ord2 Eos ABS# 0.1 K/ul 02/21/2017 Cbc With Differential Ord2 Baso ABS# 0.0 K/ul 02/21/2017 GC/CHL PRB 8345180 CHLM PROBE NEG 12/24/2014 GC/CHL PRB 1625123 GC PROBE NEG 12/24/2014 TSH 6783538 TSH 4.968 uIU/ML 11/04/2013 VIT D TOTL 5791782 VIT D TOTL 20 NG/ML 11/04/2013 FREE T4 8608983 FREE T4 1.09 NG/DL 11/04/2013 CBC 4300170 WBC 5.7 10e9/L 11/04/2013 CBC 6341230 RBC 4.35 10e12/L 11/04/2013 CBC 4132364 HGB 12.5 g/dL 11/04/2013 CBC 5043160 HCT DET 39.1 % 11/04/2013 CBC 4223818 MCV 89.9 fL 11/04/2013 CBC 7811027 MCH 28.7 pg 11/04/2013 CBC 2103242 MCHC 32.0 g/dL 11/04/2013 CBC 2661083 PLT 247 10e9/L 11/04/2013 CBC 4828258 MPV 9.9 fL 11/04/2013 CBC 5147442 JUSTIN % 66.0 % 11/04/2013 CBC 6730612 LY % 25.0 % 11/04/2013 CBC 4056682 MON % 6.5 % 11/04/2013 CBC 0667321 EOS % 2.3 % 11/04/2013 CBC 9668609 BASO % 0.2 % 11/04/2013 CBC 1993627 RDW 12.8 % 11/04/2013 CBC 2011648 ABS JUSTIN 3.76 10e9/L 11/04/2013 CBC 6702519 ABS LYMPH 1.43 10e9/L 11/04/2013 CBC 1787260 ABS MONO 0.37 10e9/L 11/04/2013 CBC 9309219 ABS EOS 0.13 10e9/L 11/04/2013 CBC 2970704 ABS BASO 0.01 10e9/L 11/04/2013 CBC 5991015 RDW-SD 41.2 fL 11/04/2013 LIPID GRP HDL TEST 49 MG/DL 11/04/2013 LIPID GRP TRIG 82 MG/DL 11/04/2013 LIPID GRP TEST LDL 96 MG/DL 11/04/2013 LIPID GRP CHOL 161 MG/DL 11/04/2013 LIPID GRP RCHOL/HDL 3.29 RATIO 11/04/2013 GFR CALC 5270778 GFR AA >60 ML/MIN 11/04/2013 GFR CALC 7623653 GFR NON-AA >60 ML/MIN 11/04/2013 CHEM 14 4393996 AST 16 U/L 11/04/2013 CHEM 14 6113320 ALT 13 IU/L 11/04/2013 CHEM 14 7556264 BUN 19 MG/DL 11/04/2013 CHEM 14 4685577 ALBUMIN 4.1 GM/DL 11/04/2013 CHEM 14 3709265 CHLORIDE 105 MMOL/L 11/04/2013 CHEM 14 6416261 BILI TOT 0.5 MG/DL 11/04/2013 CHEM 14 0525600 ALK PHOS 60 U/L 11/04/2013 CHEM 14 9104648 SODIUM 137 MMOL/L 11/04/2013 CHEM 14 7662440 CREATININE 0.72 MG/DL 11/04/2013 CHEM 14 2461455 CALCIUM 9.1 MG/DL 11/04/2013 CHEM 14 5208367 POTASSIUM 4.3 MMOL/L 11/04/2013 CHEM 14 4669393 PROT TOT 6.7 GM/DL 11/04/2013 CHEM 14 9529122 GLUCOSE 87 MG/DL 11/04/2013 CHEM 14 9830179 BICARB 26 MMOL/L 11/04/2013 CHEM 14 7943775 ANION GAP 6 MEQ/L 11/04/2013 Review of Systems System Result Effective Dates Constitutional No recent illness 2016 Constitutional No chills 03/19/2017 Constitutional No fatigue 03/19/2017 Constitutional No fever 03/19/2017 Constitutional No insomnia 03/19/2017 Constitutional No malaise 03/19/2017 Eyes No blindness 03/19/2017 Eyes No vision change 03/19/2017 Ears/Nose/Throat/Neck No dental pain Ears/Nose/Throat/Neck No dizziness 2016 Ears/Nose/Throat/Neck No dysphagia 2016 Ears/Nose/Throat/Neck No headache 2016 Ears/Nose/Throat/Neck No hearing loss Ears/Nose/Throat/Neck No nasal allergies 03/19/2017 Ears/Nose/Throat/Neck No sore throat Ears/Nose/Throat/Neck No postnasal drip 03/19/2017 Ears/Nose/Throat/Neck No sinus congestion 03/19/2017 Cardiovascular No chest pain/pressure Cardiovascular No dyspnea 03/19/2017 Cardiovascular No edema 03/19/2017 Cardiovascular No exercise intolerance Cardiovascular No fatigue 03/19/2017 Cardiovascular No near-syncope/dizziness 03/19/2017 Respiratory No chest tightness 2016 Respiratory No cigarette smoking 2016 Respiratory No cough 03/19/2017 Respiratory No dyspnea 03/19/2017 Respiratory No pedal edema 03/19/2017 Respiratory No snoring 03/19/2017 Respiratory No wheezing 03/19/2017 Gastrointestinal No hemorrhoids 2016 Gastrointestinal No abdominal pain 2016 Gastrointestinal No constipation 2016 Gastrointestinal No diarrhea 03/19/2017 Gastrointestinal No gastroesophageal reflux 03/19/2017 Gastrointestinal No melena 03/19/2017 Gastrointestinal No nausea 03/19/2017 Gastrointestinal No vomiting 03/19/2017 Genitourinary/Nephrology No breast complaint 03/19/2017 Genitourinary/Nephrology No urinary urgency 03/19/2017 Genitourinary/Nephrology No vaginal discharge 03/19/2017 Musculoskeletal No stiffness 03/19/2017 Musculoskeletal No swelling 03/19/2017 Musculoskeletal No muscle weakness 2016 Musculoskeletal No myalgias 03/19/2017 Dermatologic No rash 03/19/2017 Dermatologic No scar 03/19/2017 Neurologic No dizziness 03/19/2017 Neurologic No headache 03/19/2017 Neurologic No neck pain 03/19/2017 Neurologic No syncope 03/19/2017 Psychiatric No anxiety 03/19/2017 Psychiatric No depression 03/19/2017 Constitutional No recent illness 2016 Constitutional No chills 02/21/2017 Constitutional No fatigue 02/21/2017 Constitutional No fever 02/21/2017 Constitutional No insomnia 02/21/2017 Constitutional No malaise 02/21/2017 Eyes No blindness 02/21/2017 Eyes No vision change 02/21/2017 Ears/Nose/Throat/Neck No dental pain Ears/Nose/Throat/Neck No dizziness 2016 Ears/Nose/Throat/Neck No dysphagia 2016 Ears/Nose/Throat/Neck No headache 2016 Ears/Nose/Throat/Neck No hearing loss Ears/Nose/Throat/Neck No nasal allergies 02/21/2017 Ears/Nose/Throat/Neck No sore throat Ears/Nose/Throat/Neck No postnasal drip 02/21/2017 Ears/Nose/Throat/Neck No sinus congestion 02/21/2017 Cardiovascular No chest pain/pressure Cardiovascular No dyspnea 02/21/2017 Cardiovascular No edema 02/21/2017 Cardiovascular No exercise intolerance Cardiovascular No fatigue 02/21/2017 Cardiovascular No near-syncope/dizziness 02/21/2017 Respiratory No chest tightness 2016 Respiratory No cigarette smoking 2016 Respiratory No cough 02/21/2017 Respiratory No dyspnea 02/21/2017 Respiratory No pedal edema 02/21/2017 Respiratory No snoring 02/21/2017 Respiratory No wheezing 02/21/2017 Gastrointestinal No hemorrhoids 2016 Gastrointestinal No abdominal pain 2016 Gastrointestinal No constipation 2016 Gastrointestinal No diarrhea 02/21/2017 Gastrointestinal No gastroesophageal reflux 02/21/2017 Gastrointestinal No melena 02/21/2017 Gastrointestinal No nausea 02/21/2017 Gastrointestinal No vomiting 02/21/2017 Genitourinary/Nephrology No breast complaint 02/21/2017 Genitourinary/Nephrology No urinary urgency 02/21/2017 Genitourinary/Nephrology No vaginal discharge 02/21/2017 Musculoskeletal No stiffness 02/21/2017 Musculoskeletal No swelling 02/21/2017 Musculoskeletal No muscle weakness 2016 Musculoskeletal No myalgias 02/21/2017 Dermatologic No rash 02/21/2017 Dermatologic No scar 02/21/2017 Neurologic No dizziness 02/21/2017 Neurologic No headache 02/21/2017 Neurologic No neck pain 02/21/2017 Neurologic No syncope 02/21/2017 Psychiatric No anxiety 02/21/2017 Psychiatric No depression 02/21/2017 Constitutional No recent illness 2016 Constitutional No chills 10/22/2016 Constitutional No fatigue 10/22/2016 Constitutional No fever 10/22/2016 Constitutional No insomnia 10/22/2016 Constitutional No malaise 10/22/2016 Eyes No blindness 10/22/2016 Eyes No vision change 10/22/2016 Ears/Nose/Throat/Neck No dental pain Ears/Nose/Throat/Neck No dizziness 2016 Ears/Nose/Throat/Neck No dysphagia 2016 Ears/Nose/Throat/Neck No headache 2016 Ears/Nose/Throat/Neck No hearing loss Ears/Nose/Throat/Neck No nasal allergies 10/22/2016 Ears/Nose/Throat/Neck No sore throat Ears/Nose/Throat/Neck No postnasal drip 10/22/2016 Ears/Nose/Throat/Neck No sinus congestion 10/22/2016 Cardiovascular No chest pain/pressure Cardiovascular No dyspnea 10/22/2016 Cardiovascular No edema 10/22/2016 Cardiovascular No exercise intolerance Cardiovascular No fatigue 10/22/2016 Cardiovascular No near-syncope/dizziness 10/22/2016 Respiratory No chest tightness 2016 Respiratory No cigarette smoking 2016 Respiratory No cough 10/22/2016 Respiratory No dyspnea 10/22/2016 Respiratory No pedal edema 10/22/2016 Respiratory No snoring 10/22/2016 Respiratory No wheezing 10/22/2016 Gastrointestinal No hemorrhoids 2016 Gastrointestinal abdominal pain 2016 Gastrointestinal No constipation 2016 Gastrointestinal No diarrhea 10/22/2016 Gastrointestinal gastroesophageal reflux 10/22/2016 Genitourinary/Nephrology No breast complaint 10/22/2016 Genitourinary/Nephrology No urinary urgency 10/22/2016 Genitourinary/Nephrology No vaginal discharge 10/22/2016 Musculoskeletal No stiffness 10/22/2016 Musculoskeletal No swelling 10/22/2016 Musculoskeletal No muscle weakness 2016 Musculoskeletal No myalgias 10/22/2016 Dermatologic No rash 10/22/2016 Dermatologic No scar 10/22/2016 Neurologic No dizziness 10/22/2016 Neurologic No headache 10/22/2016 Neurologic No neck pain 10/22/2016 Neurologic No syncope 10/22/2016 Psychiatric No anxiety 10/22/2016 Psychiatric No depression 10/22/2016 Constitutional No recent illness 2015 Constitutional No chills 11/22/2015 Constitutional No fatigue 11/22/2015 Constitutional No fever 11/22/2015 Constitutional No insomnia 11/22/2015 Constitutional No malaise 11/22/2015 Eyes No blindness 11/22/2015 Eyes No vision change 11/22/2015 Ears/Nose/Throat/Neck No dental pain Ears/Nose/Throat/Neck No dizziness 2015 Ears/Nose/Throat/Neck No dysphagia 2015 Ears/Nose/Throat/Neck No headache 2015 Ears/Nose/Throat/Neck No hearing loss Ears/Nose/Throat/Neck No nasal allergies 11/22/2015 Ears/Nose/Throat/Neck No sore throat Ears/Nose/Throat/Neck No postnasal drip 11/22/2015 Ears/Nose/Throat/Neck No sinus congestion 11/22/2015 Cardiovascular No chest pain/pressure Cardiovascular No dyspnea 11/22/2015 Cardiovascular No edema 11/22/2015 Cardiovascular No exercise intolerance Cardiovascular No fatigue 11/22/2015 Cardiovascular No near-syncope/dizziness 11/22/2015 Respiratory No chest tightness 2015 Respiratory No cigarette smoking 2015 Respiratory No cough 11/22/2015 Respiratory No dyspnea 11/22/2015 Respiratory No pedal edema 11/22/2015 Respiratory No snoring 11/22/2015 Respiratory No wheezing 11/22/2015 Gastrointestinal No hemorrhoids 2015 Gastrointestinal No abdominal pain 2015 Gastrointestinal No constipation 2015 Gastrointestinal No diarrhea 11/22/2015 Gastrointestinal No gastroesophageal reflux 11/22/2015 Gastrointestinal No melena 11/22/2015 Gastrointestinal No nausea 11/22/2015 Gastrointestinal No vomiting 11/22/2015 Genitourinary/Nephrology No breast complaint 11/22/2015 Genitourinary/Nephrology No urinary urgency 11/22/2015 Genitourinary/Nephrology No vaginal discharge 11/22/2015 Musculoskeletal No stiffness 11/22/2015 Musculoskeletal No swelling 11/22/2015 Musculoskeletal No muscle weakness 2015 Musculoskeletal No myalgias 11/22/2015 Dermatologic No rash 11/22/2015 Dermatologic No scar 11/22/2015 Neurologic No dizziness 11/22/2015 Neurologic No headache 11/22/2015 Neurologic No neck pain 11/22/2015 Neurologic No syncope 11/22/2015 Psychiatric No anxiety 11/22/2015 Psychiatric No depression 11/22/2015 Constitutional No recent illness 2014 Constitutional No fatigue 12/23/2014 Constitutional No fever 12/23/2014 Constitutional No insomnia 12/23/2014 Eyes No eye discharge 12/23/2014 Eyes No eye erythema 12/23/2014 Ears/Nose/Throat/Neck No headache 2014 Cardiovascular No chest pain/pressure Cardiovascular No edema 12/23/2014 Cardiovascular No near-syncope/dizziness 12/23/2014 Cardiovascular No syncope 12/23/2014 Respiratory No productive sputum 2014 Respiratory No chest congestion 2014 Respiratory No chest tightness 2014 Respiratory No cough 12/23/2014 Respiratory No dyspnea 12/23/2014 Gastrointestinal No abdominal pain 2014 Gastrointestinal No constipation 2014 Gastrointestinal No diarrhea 12/23/2014 Genitourinary/Nephrology No breast complaint 12/23/2014 Genitourinary/Nephrology No dysuria 12/23 Genitourinary/Nephrology No hematuria Genitourinary/Nephrology No menopausal symptoms 12/23/2014 Genitourinary/Nephrology No nocturia Genitourinary/Nephrology No Pap smear abnormality 12/23/2014 Genitourinary/Nephrology No urinary urgency 12/23/2014 Genitourinary/Nephrology No urinary frequency 12/23/2014 Genitourinary/Nephrology No urinary incontinence 12/23/2014 Genitourinary/Nephrology No vaginal discharge 12/23/2014 Musculoskeletal No joint complaint 2014 Neurologic No alteration of consciousness 12/23/2014 Psychiatric depression 12/23/2014 Constitutional No fatigue 11/25/2013 Constitutional No fever 11/25/2013 Constitutional No insomnia 11/25/2013 Constitutional No recent illness 2013 Eyes No eye discharge 11/25/2013 Eyes No eye erythema 11/25/2013 Ears/Nose/Throat/Neck No headache 2013 Cardiovascular No chest pain/pressure Cardiovascular No edema 11/25/2013 Cardiovascular No near-syncope/dizziness 11/25/2013 Cardiovascular No syncope 11/25/2013 Respiratory No chest congestion 2013 Respiratory No chest tightness 2013 Respiratory No cough 11/25/2013 Respiratory No dyspnea 11/25/2013 Respiratory No productive sputum 2013 Gastrointestinal No abdominal pain 2013 Gastrointestinal No constipation 2013 Gastrointestinal No diarrhea 11/25/2013 Genitourinary/Nephrology No breast complaint 11/25/2013 Genitourinary/Nephrology No dysuria 11/25 Genitourinary/Nephrology No hematuria Genitourinary/Nephrology No urinary frequency 11/25/2013 Genitourinary/Nephrology No urinary incontinence 11/25/2013 Genitourinary/Nephrology No urinary urgency 11/25/2013 Genitourinary/Nephrology No vaginal discharge 11/25/2013 Genitourinary/Nephrology No menopausal symptoms 11/25/2013 Genitourinary/Nephrology No nocturia Genitourinary/Nephrology No Pap smear abnormality 11/25/2013 Musculoskeletal No joint complaint 2013 Neurologic No alteration of consciousness 11/25/2013 Psychiatric depression 11/25/2013 Constitutional No recent illness 2013 Constitutional No chills 11/04/2013 Constitutional No fatigue 11/04/2013 Constitutional No fever 11/04/2013 Constitutional No insomnia 11/04/2013 Constitutional No malaise 11/04/2013 Eyes No blindness 11/04/2013 Eyes No vision change 11/04/2013 Ears/Nose/Throat/Neck No dental pain 09/2013 Ears/Nose/Throat/Neck No dizziness 2013 Ears/Nose/Throat/Neck No dysphagia 2013 Ears/Nose/Throat/Neck No headache 2013 Ears/Nose/Throat/Neck No hearing loss 09/2013 Ears/Nose/Throat/Neck No nasal allergies 11/04/2013 Ears/Nose/Throat/Neck No sore throat 09/2013 Ears/Nose/Throat/Neck No postnasal drip 11/04/2013 Ears/Nose/Throat/Neck No sinus congestion 11/04/2013 Cardiovascular No chest pain/pressure 09/2013 Cardiovascular No dyspnea 11/04/2013 Cardiovascular No edema 11/04/2013 Cardiovascular No exercise intolerance Cardiovascular No fatigue 11/04/2013 Cardiovascular No near-syncope/dizziness 11/04/2013 Respiratory No chest tightness 2013 Respiratory No cigarette smoking 2013 Respiratory No cough 11/04/2013 Respiratory No dyspnea 11/04/2013 Respiratory No pedal edema 11/04/2013 Respiratory No snoring 11/04/2013 Respiratory No wheezing 11/04/2013 Gastrointestinal No hemorrhoids 2013 Gastrointestinal No abdominal pain 2013 Gastrointestinal No constipation 2013 Gastrointestinal No diarrhea 11/04/2013 Gastrointestinal No gastroesophageal reflux 11/04/2013 Gastrointestinal No melena 11/04/2013 Gastrointestinal No nausea 11/04/2013 Gastrointestinal No vomiting 11/04/2013 Genitourinary/Nephrology No breast complaint 11/04/2013 Genitourinary/Nephrology No urinary urgency 11/04/2013 Genitourinary/Nephrology No vaginal discharge 11/04/2013 Musculoskeletal No stiffness 11/04/2013 Musculoskeletal No swelling 11/04/2013 Musculoskeletal No muscle weakness 2013 Musculoskeletal No myalgias 11/04/2013 Dermatologic No rash 11/04/2013 Dermatologic No scar 11/04/2013 Neurologic No dizziness 11/04/2013 Neurologic No headache 11/04/2013 Neurologic No neck pain 11/04/2013 Neurologic No syncope 11/04/2013 Psychiatric No anxiety 11/04/2013 Psychiatric No depression 11/04/2013 Physical Exam Exam Name System Name Item Name Status Result Effective Dates Notes Full Exam - General 1994 Constitutional general appearance Development: well developed 03/19/2017 None Full Exam - General 1994 Constitutional general appearance Development: appears stated age 1003/19/2017 None Full Exam - General 1994 Constitutional general appearance Hygiene/Attention to Grooming: good hygiene 03/19/2017 None Full Exam - General 1994 Eyes conjunctiva /eyelids Overall: conjunctiva clear 03/19/2017 None Full Exam - General 1994 Eyes conjunctiva /eyelids Overall: cornea clear 03/19/2017 None Full Exam - General 1994 Eyes conjunctiva /eyelids Overall: eyelids normal 03/19/2017 None Full Exam - General 1994 Eyes pupils and irises Overall: pupils equal, round, reactive to light and accomodation 03/19/2017 None Full Exam - General 1994 Ears/Nose/Throat otoscopic exam Overall: external auditory canals clear 03/19/2017 None Full Exam - General 1994 Ears/Nose/Throat otoscopic exam Overall: tympanic membranes clear 03/19/2017 None Full Exam - General 1994 Ears/Nose/Throat lips/teeth/gingiva Overall: benign lips 03/19/2017 None Full Exam - General 1994 Ears/Nose/Throat lips/teeth/gingiva Overall: normal dentition 03/19/2017 None Full Exam - General 1994 Ears/Nose/Throat oral cavity/pharynx/larynx Overall: oral mucosa clear 03/19/2017 None Full Exam - General 1994 Ears/Nose/Throat oral cavity/pharynx/larynx Overall: oropharyngeal mucosa clear 03/19/2017 None Full Exam - General 1994 Ears/Nose/Throat oral cavity/pharynx/larynx Overall: hypopharynx benign 03/19/2017 None Full Exam - General 1994 Ears/Nose/Throat oral cavity/pharynx/larynx Overall: no masses 03/19/2017 None Full Exam - General 1994 Respiratory auscultation Overall: breath sounds clear bilaterally 03/19/2017 None Full Exam - General 1994 Respiratory respiratory effort/rhythm Overall: no retractions 03/19/2017 None Full Exam - General 1994 Respiratory respiratory effort/rhythm Overall: normal rate 03/19/2017 None Full Exam - General 1994 Cardiovascular extremities Overall: no clubbing 03/19/2017 None Full Exam - General 1994 Cardiovascular auscultation of heart Overall: regular rate 03/19/2017 None Full Exam - General 1994 Cardiovascular auscultation of heart Overall: normal heart sounds 03/19/2017 None Full Exam - General 1994 Abdomen abdominal exam Overall: no tenderness 03/19/2017 None Full Exam - General 1994 Abdomen abdominal exam Overall: normal bowel sounds 03/19/2017 None Full Exam - General 1994 Musculoskeletal spine, ribs and pelvis Overall: spine benign 03/19/2017 None Full Exam - General 1994 Musculoskeletal spine, ribs and pelvis Overall: sacroiliac joint benign 03/19/2017 None Full Exam - General 1994 Musculoskeletal spine, ribs and pelvis Overall: good posture 03/19/2017 None Full Exam - General 1994 Musculoskeletal head and neck Overall: head atraumatic 03/19/2017 None Full Exam - General 1994 Musculoskeletal head and neck Overall: cervical spine benign 03/19/2017 None Full Exam - General 1994 Integument inspection of skin Overall: few scattered moles, no gross abnormalities 03/19/2017 None Full Exam - General 1994 Neurologic deep tendon reflexes Overall: deep tendon reflexes intact 03/19/2017 None Full Exam - General 1994 Neurologic cranial nerves Overall: crainial nerves 2 - 12 grossly intact 03/19/2017 None Full Exam - General 1994 Psychiatric orientation/consciousness Overall: oriented to person, place and time 03/19/2017 None Full Exam - General 1994 Psychiatric mood and affect Overall: normal mood and affect 03/19/2017 None Full Exam - General 1994 Constitutional general appearance Development: well developed 02/21/2017 None Full Exam - General 1994 Constitutional general appearance Development: appears stated age 0902/21/2017 None Full Exam - General 1994 Constitutional general appearance Hygiene/Attention to Grooming: good hygiene 02/21/2017 None Full Exam - General 1994 Eyes conjunctiva /eyelids Overall: conjunctiva clear 02/21/2017 None Full Exam - General 1994 Eyes conjunctiva /eyelids Overall: cornea clear 02/21/2017 None Full Exam - General 1994 Eyes conjunctiva /eyelids Overall: eyelids normal 02/21/2017 None Full Exam - General 1994 Eyes pupils and irises Overall: pupils equal, round, reactive to light and accomodation 02/21/2017 None Full Exam - General 1994 Ears/Nose/Throat otoscopic exam Overall: external auditory canals clear 02/21/2017 None Full Exam - General 1994 Ears/Nose/Throat otoscopic exam Overall: tympanic membranes clear 02/21/2017 None Full Exam - General 1994 Ears/Nose/Throat lips/teeth/gingiva Overall: benign lips 02/21/2017 None Full Exam - General 1994 Ears/Nose/Throat lips/teeth/gingiva Overall: normal dentition 02/21/2017 None Full Exam - General 1994 Ears/Nose/Throat oral cavity/pharynx/larynx Overall: oral mucosa clear 02/21/2017 None Full Exam - General 1994 Ears/Nose/Throat oral cavity/pharynx/larynx Overall: oropharyngeal mucosa clear 02/21/2017 None Full Exam - General 1994 Ears/Nose/Throat oral cavity/pharynx/larynx Overall: hypopharynx benign 02/21/2017 None Full Exam - General 1994 Ears/Nose/Throat oral cavity/pharynx/larynx Overall: no masses 02/21/2017 None Full Exam - General 1994 Respiratory auscultation Overall: breath sounds clear bilaterally 02/21/2017 None Full Exam - General 1994 Respiratory respiratory effort/rhythm Overall: no retractions 02/21/2017 None Full Exam - General 1994 Respiratory respiratory effort/rhythm Overall: normal rate 02/21/2017 None Full Exam - General 1994 Cardiovascular extremities Overall: no clubbing 02/21/2017 None Full Exam - General 1994 Cardiovascular auscultation of heart Overall: regular rate 02/21/2017 None Full Exam - General 1994 Cardiovascular auscultation of heart Overall: normal heart sounds 02/21/2017 None Full Exam - General 1994 Abdomen abdominal exam Overall: no tenderness 02/21/2017 None Full Exam - General 1994 Abdomen abdominal exam Overall: normal bowel sounds 02/21/2017 None Full Exam - General 1994 Musculoskeletal spine, ribs and pelvis Overall: spine benign 02/21/2017 None Full Exam - General 1994 Musculoskeletal spine, ribs and pelvis Overall: sacroiliac joint benign 02/21/2017 None Full Exam - General 1994 Musculoskeletal spine, ribs and pelvis Overall: good posture 02/21/2017 None Full Exam - General 1994 Musculoskeletal head and neck Overall: head atraumatic 02/21/2017 None Full Exam - General 1994 Musculoskeletal head and neck Overall: cervical spine benign 02/21/2017 None Full Exam - General 1994 Integument inspection of skin Overall: few scattered moles, no gross abnormalities 02/21/2017 None Full Exam - General 1994 Neurologic deep tendon reflexes Overall: deep tendon reflexes intact 02/21/2017 None Full Exam - General 1994 Neurologic cranial nerves Overall: crainial nerves 2 - 12 grossly intact 02/21/2017 None Full Exam - General 1994 Psychiatric orientation/consciousness Overall: oriented to person, place and time 02/21/2017 None Full Exam - General 1994 Psychiatric mood and affect Overall: normal mood and affect 02/21/2017 None Full Exam - General 1994 Constitutional general appearance Development: well developed 10/22/2016 None Full Exam - General 1994 Constitutional general appearance Development: appears stated age 0510/22/2016 None Full Exam - General 1994 Constitutional general appearance Hygiene/Attention to Grooming: good hygiene 10/22/2016 None Full Exam - General 1994 Eyes conjunctiva /eyelids Overall: conjunctiva clear 10/22/2016 None Full Exam - General 1994 Eyes conjunctiva /eyelids Overall: cornea clear 10/22/2016 None Full Exam - General 1994 Eyes conjunctiva /eyelids Overall: eyelids normal 10/22/2016 None Full Exam - General 1994 Eyes pupils and irises Overall: pupils equal, round, reactive to light and accomodation 10/22/2016 None Full Exam - General 1994 Ears/Nose/Throat otoscopic exam Overall: external auditory canals clear 10/22/2016 None Full Exam - General 1994 Ears/Nose/Throat otoscopic exam Overall: tympanic membranes clear 10/22/2016 None Full Exam - General 1994 Ears/Nose/Throat lips/teeth/gingiva Overall: benign lips 10/22/2016 None Full Exam - General 1994 Ears/Nose/Throat lips/teeth/gingiva Overall: normal dentition 10/22/2016 None Full Exam - General 1994 Ears/Nose/Throat oral cavity/pharynx/larynx Overall: oral mucosa clear 10/22/2016 None Full Exam - General 1994 Ears/Nose/Throat oral cavity/pharynx/larynx Overall: oropharyngeal mucosa clear 10/22/2016 None Full Exam - General 1994 Ears/Nose/Throat oral cavity/pharynx/larynx Overall: hypopharynx benign 10/22/2016 None Full Exam - General 1994 Ears/Nose/Throat oral cavity/pharynx/larynx Overall: no masses 10/22/2016 None Full Exam - General 1994 Respiratory auscultation Overall: breath sounds clear bilaterally 10/22/2016 None Full Exam - General 1994 Respiratory respiratory effort/rhythm Overall: no retractions 10/22/2016 None Full Exam - General 1994 Respiratory respiratory effort/rhythm Overall: normal rate 10/22/2016 None Full Exam - General 1994 Cardiovascular extremities Overall: no clubbing 10/22/2016 None Full Exam - General 1994 Cardiovascular auscultation of heart Overall: regular rate 10/22/2016 None Full Exam - General 1994 Cardiovascular auscultation of heart Overall: normal heart sounds 10/22/2016 None Full Exam - General 1994 Abdomen abdominal exam Overall: no tenderness 10/22/2016 None Full Exam - General 1994 Abdomen abdominal exam Overall: normal bowel sounds 10/22/2016 None Full Exam - General 1994 Musculoskeletal spine, ribs and pelvis Overall: spine benign 10/22/2016 None Full Exam - General 1994 Musculoskeletal spine, ribs and pelvis Overall: sacroiliac joint benign 10/22/2016 None Full Exam - General 1994 Musculoskeletal spine, ribs and pelvis Overall: good posture 10/22/2016 None Full Exam - General 1994 Musculoskeletal head and neck Overall: head atraumatic 10/22/2016 None Full Exam - General 1994 Musculoskeletal head and neck Overall: cervical spine benign 10/22/2016 None Full Exam - General 1994 Integument inspection of skin Overall: few scattered moles, no gross abnormalities 10/22/2016 None Full Exam - General 1994 Neurologic deep tendon reflexes Overall: deep tendon reflexes intact 10/22/2016 None Full Exam - General 1994 Neurologic cranial nerves Overall: crainial nerves 2 - 12 grossly intact 10/22/2016 None Full Exam - General 1994 Psychiatric orientation/consciousness Overall: oriented to person, place and time 10/22/2016 None Full Exam - General 1994 Psychiatric mood and affect Overall: normal mood and affect 10/22/2016 None Full Exam - General 1994 Constitutional general appearance Development: well developed 11/22/2015 None Full Exam - General 1994 Constitutional general appearance Development: appears stated age 0611/22/2015 None Full Exam - General 1994 Constitutional general appearance Hygiene/Attention to Grooming: good hygiene 11/22/2015 None Full Exam - General 1994 Eyes conjunctiva /eyelids Overall: conjunctiva clear 11/22/2015 None Full Exam - General 1994 Eyes conjunctiva /eyelids Overall: cornea clear 11/22/2015 None Full Exam - General 1994 Eyes conjunctiva /eyelids Overall: eyelids normal 11/22/2015 None Full Exam - General 1994 Eyes pupils and irises Overall: pupils equal, round, reactive to light and accomodation 11/22/2015 None Full Exam - General 1994 Ears/Nose/Throat otoscopic exam Overall: external auditory canals clear 11/22/2015 None Full Exam - General 1994 Ears/Nose/Throat otoscopic exam Overall: tympanic membranes clear 11/22/2015 None Full Exam - General 1994 Ears/Nose/Throat lips/teeth/gingiva Overall: benign lips 11/22/2015 None Full Exam - General 1994 Ears/Nose/Throat lips/teeth/gingiva Overall: normal dentition 11/22/2015 None Full Exam - General 1994 Ears/Nose/Throat oral cavity/pharynx/larynx Overall: oral mucosa clear 11/22/2015 None Full Exam - General 1994 Ears/Nose/Throat oral cavity/pharynx/larynx Overall: oropharyngeal mucosa clear 11/22/2015 None Full Exam - General 1994 Ears/Nose/Throat oral cavity/pharynx/larynx Overall: hypopharynx benign 11/22/2015 None Full Exam - General 1994 Ears/Nose/Throat oral cavity/pharynx/larynx Overall: no masses 11/22/2015 None Full Exam - General 1994 Respiratory auscultation Overall: breath sounds clear bilaterally 11/22/2015 None Full Exam - General 1994 Respiratory respiratory effort/rhythm Overall: no retractions 11/22/2015 None Full Exam - General 1994 Respiratory respiratory effort/rhythm Overall: normal rate 11/22/2015 None Full Exam - General 1994 Cardiovascular extremities Overall: no clubbing 11/22/2015 None Full Exam - General 1994 Cardiovascular auscultation of heart Overall: regular rate 11/22/2015 None Full Exam - General 1994 Cardiovascular auscultation of heart Overall: normal heart sounds 11/22/2015 None Full Exam - General 1994 Abdomen abdominal exam Overall: no tenderness 11/22/2015 None Full Exam - General 1994 Abdomen abdominal exam Overall: normal bowel sounds 11/22/2015 None Full Exam - General 1994 Musculoskeletal spine, ribs and pelvis Overall: spine benign 11/22/2015 None Full Exam - General 1994 Musculoskeletal spine, ribs and pelvis Overall: sacroiliac joint benign 11/22/2015 None Full Exam - General 1994 Musculoskeletal spine, ribs and pelvis Overall: good posture 11/22/2015 None Full Exam - General 1994 Musculoskeletal head and neck Overall: head atraumatic 11/22/2015 None Full Exam - General 1994 Musculoskeletal head and neck Overall: cervical spine benign 11/22/2015 None Full Exam - General 1994 Integument inspection of skin Overall: few scattered moles, no gross abnormalities 11/22/2015 None Full Exam - General 1994 Neurologic deep tendon reflexes Overall: deep tendon reflexes intact 11/22/2015 None Full Exam - General 1994 Neurologic cranial nerves Overall: crainial nerves 2 - 12 grossly intact 11/22/2015 None Full Exam - General 1994 Psychiatric orientation/consciousness Overall: oriented to person, place and time 11/22/2015 None Full Exam - General 1994 Psychiatric mood and affect Overall: normal mood and affect 11/22/2015 None Full Exam - Genitourinary/Female Constitutional general appearance Overall: well nourished 12/23/2014 None Full Exam - Genitourinary/Female Constitutional general appearance Overall: well developed 12/23/2014 None Full Exam - Genitourinary/Female Constitutional general appearance Overall: in no acute distress 12/23/2014 None Full Exam - Genitourinary/Female Eyes conjunctiva/eyelids Overall: conjunctiva clear 12/23/2014 None Full Exam - Genitourinary/Female Eyes pupils and irises Overall: pupils equal, round, reactive to light and accomodation 12/23/2014 None Full Exam - Genitourinary/Female Ears/Nose/Throat otoscopic exam Overall: external auditory canals clear 12/23/2014 None Full Exam - Genitourinary/Female Ears/Nose/Throat otoscopic exam Overall: tympanic membranes clear 12/23/2014 None Full Exam - Genitourinary/Female Ears/Nose/Throat oral cavity/pharynx/larynx Overall: oral mucosa clear 12/23/2014 None Full Exam - Genitourinary/Female Respiratory auscultation Overall: breath sounds clear bilaterally 12/23/2014 None Full Exam - Genitourinary/Female Respiratory respiratory effort/rhythm Overall: no retractions 12/23/2014 None Full Exam - Genitourinary/Female Respiratory respiratory effort/rhythm Overall: normal rate 12/23/2014 None Full Exam - Genitourinary/Female Cardiovascular auscultation of heart Overall: regular rate 12/23/2014 None Full Exam - Genitourinary/Female Cardiovascular auscultation of heart Overall: normal heart sounds 12/23/2014 None Full Exam - Genitourinary/Female Cardiovascular examination of vasculature Overall: no clubbing, cyanosis, edema 12/23/2014 None Full Exam - Genitourinary/Female Abdomen abdominal exam Overall: non tender, non distended 12/23/2014 None Full Exam - Genitourinary/Female Abdomen abdominal exam Overall: normal bowel sounds 12/23/2014 None Full Exam - Genitourinary/Female Abdomen abdominal exam Overall: no mass lesions 12/23/2014 None Full Exam - Genitourinary/Female Genitourinary breast inspection & palpation Overall: breasts symmetric and without lesions 12/23/2014 None Full Exam - Genitourinary/Female Genitourinary breast inspection & palpation Overall: breasts non-tender, no mass lesions 12/23/2014 None Full Exam - Genitourinary/Female Genitourinary breast inspection & palpation Overall: no nipple discharge 12/23/2014 None Full Exam - Genitourinary/Female Genitourinary external genitalia Overall: no discharge 12/23/2014 None Full Exam - Genitourinary/Female Genitourinary external genitalia Overall: no lesions 12/23/2014 None Full Exam - Genitourinary/Female Genitourinary urethral meatus Overall: normal size and location 12/23/2014 None Full Exam - Genitourinary/Female Genitourinary bladder Palpation: non-tender 12/23/2014 None Full Exam - Genitourinary/Female Genitourinary bladder Palpation: no masses 12/23/2014 None Full Exam - Genitourinary/Female Genitourinary vagina Overall: no discharge 12/23/2014 None Full Exam - Genitourinary/Female Genitourinary vagina Overall: normal tone 12/23/2014 None Full Exam - Genitourinary/Female Genitourinary vagina Overall: normal pelvic support 12/23/2014 None Full Exam - Genitourinary/Female Genitourinary vagina Introitus: small 12/23/2014 None Full Exam - Genitourinary/Female Genitourinary vagina Vaginal discharge: absent 12/23/2014 None Full Exam - Genitourinary/Female Genitourinary vagina 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 Full Exam - Genitourinary/Female Genitourinary vagina Vaginal tone: a normal exam 12/23/2014 None Full Exam - Genitourinary/Female Genitourinary cervix Inspection: stenotic os 12/23/2014 None Full Exam - Genitourinary/Female Genitourinary cervix Inspection: ectropion 12/23/2014 None Full Exam - Genitourinary/Female Genitourinary uterus Overall: normal size 12/23/2014 None Full Exam - Genitourinary/Female Genitourinary uterus Overall: non tender 12/23/2014 None Full Exam - Genitourinary/Female Genitourinary adnexa/parametria Overall: no tenderness 12/23/2014 None Full Exam - Genitourinary/Female Genitourinary adnexa/parametria Overall: no enlargement 12/23/2014 None Full Exam - Genitourinary/Female Lymphatic inspection and palpation of nodes Overall: anterior cervical chain benign 12/23/2014 None Full Exam - Genitourinary/Female Lymphatic inspection and palpation of nodes Overall: posterior cervical chain benign 12/23/2014 None Full Exam - Genitourinary/Female Musculoskeletal head and neck Overall: head atraumatic 12/23/2014 None Full Exam - Genitourinary/Female Musculoskeletal gait and station Overall: normal gait 12/23/2014 None Full Exam - Genitourinary/Female Musculoskeletal gait and station Overall: normal station 12/23/2014 None Full Exam - Genitourinary/Female Integument inspection and palpation of skin Overall: no rash, lesions 12/23/2014 None Full Exam - Genitourinary/Female Neurologic mood and affect Overall: normal mood 12/23/2014 None Full Exam - Genitourinary/Female Neurologic mood and affect Overall: normal affect 12/23/2014 None Full Exam - Genitourinary/Female Neurologic orientation Overall: oriented to person, place and time 12/23/2014 None Full Exam - Genitourinary/Female Psychiatric orientation/consciousness Overall: oriented to person, place and time 12/23/2014 None Full Exam - Genitourinary/Female Constitutional general appearance Overall: well nourished 11/25/2013 None Full Exam - Genitourinary/Female Constitutional general appearance Overall: well developed 11/25/2013 None Full Exam - Genitourinary/Female Constitutional general appearance Overall: in no acute distress 11/25/2013 None Full Exam - Genitourinary/Female Eyes conjunctiva/eyelids Overall: conjunctiva clear 11/25/2013 None Full Exam - Genitourinary/Female Eyes pupils and irises Overall: pupils equal, round, reactive to light and accomodation 11/25/2013 None Full Exam - Genitourinary/Female Ears/Nose/Throat otoscopic exam Overall: external auditory canals clear 11/25/2013 None Full Exam - Genitourinary/Female Ears/Nose/Throat otoscopic exam Overall: tympanic membranes clear 11/25/2013 None Full Exam - Genitourinary/Female Ears/Nose/Throat oral cavity/pharynx/larynx Overall: oral mucosa clear 11/25/2013 None Full Exam - Genitourinary/Female Respiratory auscultation Overall: breath sounds clear bilaterally 11/25/2013 None Full Exam - Genitourinary/Female Respiratory respiratory effort/rhythm Overall: no retractions 11/25/2013 None Full Exam - Genitourinary/Female Respiratory respiratory effort/rhythm Overall: normal rate 11/25/2013 None Full Exam - Genitourinary/Female Cardiovascular auscultation of heart Overall: regular rate 11/25/2013 None Full Exam - Genitourinary/Female Cardiovascular auscultation of heart Overall: normal heart sounds 11/25/2013 None Full Exam - Genitourinary/Female Cardiovascular examination of vasculature Overall: no clubbing, cyanosis, edema 11/25/2013 None Full Exam - Genitourinary/Female Abdomen abdominal exam Overall: non tender, non distended 11/25/2013 None Full Exam - Genitourinary/Female Abdomen abdominal exam Overall: normal bowel sounds 11/25/2013 None Full Exam - Genitourinary/Female Abdomen abdominal exam Overall: no mass lesions 11/25/2013 None Full Exam - Genitourinary/Female Genitourinary breast inspection & palpation Overall: breasts symmetric and without lesions 11/25/2013 None Full Exam - Genitourinary/Female Genitourinary breast inspection & palpation Overall: breasts non-tender, no mass lesions 11/25/2013 None Full Exam - Genitourinary/Female Genitourinary breast inspection & palpation Overall: no nipple discharge 11/25/2013 None Full Exam - Genitourinary/Female Genitourinary external genitalia Overall: no discharge 11/25/2013 None Full Exam - Genitourinary/Female Genitourinary external genitalia Overall: no lesions 11/25/2013 None Full Exam - Genitourinary/Female Genitourinary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 during office visit today. Call if any abnormal gynecologic issues during the next year, otherwise, RTC yearly or prn. Pt depressed - she is to continue with lexapro - she needs to consider counseling. . Well Adult - pt was counseled about diet, exercise, and encouraged to follow a heart healthy diet and increase activity level. The patient was instructed to RTC yearly for well adult exams and PRN for acute illnesses. The pt was also instructed to have yearly labs for check of cholesterol, thyroid, chem panel, CBC, and renal functioning. Hypothyroidism - pt with chronic hypothyroidism, continue with current medication, will monitor pt to signs or symptoms of lack of adequate supplementation. Pt is to continue with current dose of medication unless directed otherwise. Check labs at regular intervals wither q 3 months or q 6 months based on previous levels of control. . Well Adult Female - exam completed. Pap and gc/ chlamydia and breast exam completed. Pt will be called with results of her testing. She was advised to continue with yearly annual exams. Safe sex practices discussed during office visit today. Call if any abnormal gynecologic issues during the next year, otherwise, RTC yearly or prn.
--- OUTSIDE RECORDS SUMMARY | 2018-02-21 10:43 | XMS REPORT | Continuity of Care Document ---
Author Author [facility] Organization [facility] Address Unknown Phone Unavailable Allergies Active Description Code Type Severity Reaction Onset Reported/Identified Relationship to Patient Clinical Status Yes No Known Drug Allergies [id number] Drug Allergy Unknown N/A 02/19/2018 Medications Medication Packaging Start Date Stop Date Route Dosage Sig ACYCLOVIR 01/24/2017 apply 1 tablet by oral route 2 times every day ACYCLOVIR 05/31/2017 apply 1 tablet by oral route 2 times every day DUREZOL 06/17/2017 instill 1 DROP TID OD VALACYCLOVIR 06/17/2017 take 1 tablet by oral route 2 times every day PRED MILD 06/17/2017 instill one drop right eye qid PRED MILD 07/30/2017 instill one drop right eye tid Problems Date Dx Coded Attending Type Code Diagnosis Diagnosed By 10/22/2016 HANS GAMEZ MD, Ot E03.9 HYPOTHYROIDISM, UNSPECIFIED 10/22/2016 HANS GAMEZ MD, Ot K21.0 GASTRO-ESOPHAGEAL REFLUX DISEASE WITH ES 10/22/2016 HANS GAMEZ MD, Ot K44.9 DIAPHRAGMATIC HERNIA WITHOUT OBSTRUCTION 10/22/2016 HANS GAMEZ MD, Ot Z79.899 OTHER PLANNER/SCHEDULER (CURRENT) DRUG THERAPY 10/23/2016 HANS GAMEZ MD, Ot K21.9 GASTRO-ESOPHAGEAL REFLUX DISEASE WITHOUT 10/23/2016 HANS GAMEZ MD, Ot R05 COUGH 10/23/2016 HANS GAMEZ MD, Ot Z01.818 ENCOUNTER FOR OTHER PREPROCEDURAL EXAMIN 10/25/2016 HANS GAMEZ MD, Ot E03.9 HYPOTHYROIDISM, UNSPECIFIED 10/25/2016 HANS GAMEZ MD, Ot K21.0 GASTRO-ESOPHAGEAL REFLUX DISEASE WITH ES 10/25/2016 HANS GAMEZ MD, Ot K29.50 UNSPECIFIED CHRONIC GASTRITIS WITHOUT BL 10/25/2016 HANS GAMEZ MD, Ot K44.9 DIAPHRAGMATIC HERNIA WITHOUT OBSTRUCTION 10/25/2016 HANS GAMEZ MD, Ot Z79.899 OTHER PLANNER/SCHEDULER (CURRENT) DRUG THERAPY 11/08/2016 HANS GAMEZ MD, Ot E03.9 HYPOTHYROIDISM, UNSPECIFIED 11/08/2016 HANS GAMEZ MD, Ot K21.0 GASTRO-ESOPHAGEAL REFLUX DISEASE WITH ES 11/08/2016 HANS GAMEZ MD, Ot K29.50 UNSPECIFIED CHRONIC GASTRITIS WITHOUT BL 11/08/2016 HANS GAMEZ MD, Ot K44.9 DIAPHRAGMATIC HERNIA WITHOUT OBSTRUCTION 11/08/2016 HANS GAMEZ MD, Ot Z79.899 OTHER FDC (CURRENT) DRUG THERAPY 01/24/2017 W 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 01/29/2017 W 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 05/31/2017 W 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 05/31/2017 W 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 05/31/2017 W 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 05/31/2017 W H04.123 Dry eye syndrome of bilateral lacrimal glands 05/31/2017 W 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 05/31/2017 W H04.123 Dry eye syndrome of bilateral lacrimal glands 06/05/2017 W 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 06/05/2017 W H04.123 Dry eye syndrome of bilateral lacrimal glands 06/05/2017 W 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 06/05/2017 W H04.123 Dry eye syndrome of bilateral lacrimal glands 06/17/2017 W 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 06/17/2017 W 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 06/17/2017 W 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 06/17/2017 W S05.02XA Corneal abrasion w/o FB of left eye, initial encounter 06/17/2017 W 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 06/17/2017 W S05.02XA Corneal abrasion w/o FB of left eye, initial encounter 06/21/2017 W 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 06/21/2017 W S05.02XA Corneal abrasion w/o FB of left eye, initial encounter 06/21/2017 W 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 06/21/2017 W S05.02XA Corneal abrasion w/o FB of left eye, initial encounter 06/27/2017 W 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 06/27/2017 W 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 06/27/2017 W S05.02XA Corneal abrasion w/o FB of left eye, initial encounter 06/27/2017 W 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 06/27/2017 W S05.02XA Corneal abrasion w/o FB of left eye, initial encounter 06/27/2017 W 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 06/27/2017 W S05.02XA Corneal abrasion w/o FB of left eye, initial encounter 06/27/2017 W 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 06/27/2017 W S05.02XA Corneal abrasion w/o FB of left eye, initial encounter 06/27/2017 W S05.02XD Corneal abrasion w/o FB of lt eye, subsequent encounter 06/27/2017 W 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 06/27/2017 W S05.01XD Corneal abrasion w/o FB of right eye, subsequent encounter 06/27/2017 W S05.02XA Corneal abrasion w/o FB of left eye, initial encounter 06/27/2017 W S05.02XD Corneal abrasion w/o FB of lt eye, subsequent encounter 06/27/2017 W 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 06/27/2017 W S05.01XD Corneal abrasion w/o FB of right eye, subsequent encounter 06/27/2017 W S05.02XA Corneal abrasion w/o FB of left eye, initial encounter 06/27/2017 W S05.02XD Corneal abrasion w/o FB of lt eye, subsequent encounter 06/28/2017 W 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 Encounters ACCT No. Visit Date/Time Discharge Status Pt. Type Provider Facility Loc./Unit Complaint [id number] 04/30/2017 13:45:00 ACT Unknown [facility] 10/11/2016 18:31:56 ACT Document Registration [id number] 07/30/2017 08:59:20 Document Registration [id number] 06/27/2017 17:15:00 Document Registration [id number] 06/17/2017 15:13:13 Document Registration [id number] 05/31/2017 09:30:00 Document Registration [id number] 01/24/2017 17:20:32 Document Registration [id number] 03/14/2017 23:35:25 03/14/2017 23:59:59 CLS Outpatient [id number] 07/19/2017 14:44:38 07/19/2017 23:59:59 DIS Outpatient QuirinoMarjan lugo [facility] [id number] 06/06/2017 07:47:41 06/06/2017 23:59:59 DIS Outpatient Marjan Win [facility] [id number] 05/13/2017 08:18:26 05/13/2017 23:59:59 DIS Outpatient BORIS JAQUEZ [facility] RAD SCREENING [id number] 12/15/2014 15:06:00 12/15/2014 15:06:00 DIS Outpatient BORIS JAQUEZ [facility] RAD [id number] 02/19/2018 06:11:00 02/19/2018 14:45:00 DIS Outpatient HANS GAMEZ MD [facility] PREOP COLONOSCOPY/EGD [id number] 10/18/2016 08:23:00 10/18/2016 23:59:59 CLS Outpatient HANS GAMEZ MD [facility] ENDO REFLUX/COUGH [id number] 10/17/2016 14:36:00 10/17/2016 16:08:00 DIS Outpatient HANS GAMEZ MD [facility] PREOP REFLUX/COUGH [id number] 02/28/2018 12:00:00 PEN Preadmit HANS GAMEZ MD [facility] ENDO SCREENING/HIATAL HERNIA
[2018-02-21] MEDS ORDERED: NS IV 500 ML 500 ML ONE (10:45)
[2018-02-21] MEDS ORDERED: NS IV 500 ML 500 ML IV PRN (10:52)
[2018-02-21] MEDS ORDERED: HURRICAINE EXT TUBE (BENZOCAINE) XX PRN (11:00)
[2018-02-21] MEDS ORDERED: fentaNYL INJECTION 100 MCG/2 ML AMP IVP ONE (11:00)
[2018-02-21] MEDS ORDERED: MIDAZOLAM 2 MG/2 ML (VERSED) VIAL ONE ×5 (11:18)
[2018-02-21] MEDS ORDERED: LIDOCAINE JELLY 2% (XYLOCAINE) 5 ML TUBE ONE (11:19)
[2018-02-21] MEDS ORDERED: HURRICAINE EXT TUBE (BENZOCAINE) ONE (11:19)
[2018-02-21] MEDS ORDERED: fentaNYL INJECTION 100 MCG/2 ML AMP ONE (11:19)
--- NOTE | 2018-02-21 11:35 | Conscious Sedation/ASA ---
Conscious Sedation Pre-Proced Time Reviewed: 10:30 ASA Class: 2 Airway Mallampati Classification: (pamunkey appropriate class) I. II. III, IV Lungs Heart ASA score ASA 1: a normal healthy patient ASA 2: a patient with a mild systemic disease (mid diabetes, controlled hypertension, obesity ASA 3: a patient with a severe systemic disease that limits activity (angina , COPD, prior Myocardial infarction) ASA 4: a patient with an incapacitating disease that is a constant threat to life (CHF, renal failure) ASA 5: a moribund patient not expected to survive 24 hrs. (ruptured aneurysm) ASA 6: a declared brain patient whose organs are being harvested. For emergent operations, add the letter E after the classification Grade 2 Sedation Plan: Analgesia, Amnesia, Plan communicated to team members, Discussed options with patient/fam, Discussed risks with patient/fam Note The patient is an appropriate candidate to undergo the planned procedure, sedation, and anesthesia. The patient immediately re-assessed prior to indication. HANS GAMEZ MD Feb 21, 2018 11:35 am
--- NOTE | 2018-02-21 11:35 | Progress Note-Pre Operative ---
Pre-Operative Progress Note H&P Reviewed The H&P was reviewed, patient examined and no changes noted. Date Seen by Provider: Feb 21, 2018 Time Seen by Provider: 10:30 Date H&P Reviewed: Feb 21, 2018 Time H&P Reviewed: 10:30 Pre-Operative Diagnosis: type 4 symptomatic hiatal hernia HANS GAMEZ MD Feb 21, 2018 11:35 am
[2018-02-21] MEDS: MIDAZOLAM 2 MG/2 ML (VERSED) VIAL IVP ONE ×2 (11:37→11:55)
[2018-02-21] MEDS ORDERED: HYDROcodone/APAP 5 MG/325 MG (LORTAB) TAB PO PRN (11:45)
[2018-02-21] MEDS ORDERED: ONDANSETRON 4 MG/2 ML (SDV) Z0FRAN IV PRN (11:45)
[2018-02-21] MEDS ORDERED: morphine INJ 10 MG/ML 1ML (SYR OR VIAL) IV PRN (11:45)
[2018-02-21] MEDS ORDERED: ACETAMINOPHEN 325 MG TABLET PO PRN (11:45)
--- NOTE | 2018-02-21 12:12 | Progress Note-Post Operative ---
Post-Operative Progess Note Surgeon (s)/Fashion Supervisor (s) Surgeon HANS GAMEZ MD Fashion Supervisor: none Pre-Operative Diagnosis type 4 symptomatic hiatal hernia Post-Operative Diagnosis same. no change since last EGD. mild gastritis, no ishcemia, no ulcerations. Procedure & Operative Findings Date of Procedure 02/21/18 Procedure Performed/Findings EGD Anesthesia Type CS Estimated Blood Loss Estimated blood loss (mL): minimal Specimens/Packing Specimens Removed none HANS GAMEZ MD Feb 21, 2018 12:12 pm
--- NOTE | 2018-02-21 12:13 | Discharge Inst-Surgical ---
D/C Lap Instructions-FRANCO Follow Up PRN Activity as tolerated High Fiber Diet 25g or more per day Avoid Alcohol, Caffeine, Spicy [place] and Acid foods. Drink 64 fluid oz or more of fluids per day. Symptoms to Report: Fever over 101 degree F, Nausea/Vomiting If any problems/questions: Contact your physician or go to Emergency Room HANS GAMEZ MD Feb 21, 2018 12:13 pm
[2018-02-21 12:25] VITALS: BP 125/66
[2018-02-21 12:55] VITALS: BP 133/71
[2018-02-21 13:20] VITALS: BP 133/71
--- NOTE | 2018-02-21 17:51 | OPERATIVE REPORT ---
DATE OF SERVICE: 02/21/2018 ATTENDING PRIMARY CARE PHYSICIAN: Dr. Farmer. PREOPERATIVE DIAGNOSIS: Large symptomatic hiatal hernia. POSTOPERATIVE DIAGNOSES: Large type IV hiatal hernia, approximately 5 to 6 cm in size, reflux esophagitis stage II, no Arun ulcerations, no signs of ischemia, no volvulus. PROCEDURE: EGD. SURGEON: Hans Gamez MD ANESTHESIA: Conscious sedation. ESTIMATED BLOOD LOSS: Minimal. FINDINGS: Reflux esophagitis stage II, no Arun ulcerations within the stomach within the hernia sac. No signs of ischemia or volvulus. Mild gastritis of the stomach antrum. No distal obstructions. DISPOSITION: The patient tolerated the procedure well. INDICATIONS: The patient is a 62-year-old female known to us. We had initially seen her in 10/2016 for cough, anorexia as well as epigastric pressure sensation, which she had had for years; however, had progressively worsened. An x-ray was performed, which did show a large retrocardiac lesion consistent with a hiatal hernia. On 10/18/2016, she underwent an EGD with findings of reflux esophagitis stage II as well as a large grade IV hiatal hernia. [facility] [place] The surgeon did agree with my assessment for repair due to the severe symptomatology and worsening symptoms with compression of the pulmonary vascular system. She will need a more recent EGD as well as undergo further workup at [facility] with CT scanning and possible manometric studies as well as a pH probe. DESCRIPTION OF PROCEDURE: The patient was brought to the endoscopy suite, laid in left lateral decubitus position. After adequate IV pain and sedating medications and conscious sedation anesthesia, the mouthpiece was applied. The endoscope was placed in the mouth, visualizing the pharynx and hypopharyngeal region. Vocal cords, epiglottis and vallecula identified and appeared to be normal. The endoscope was then gently intubated. Esophageal opening and esophagus insufflated. The endoscope was then advanced to the first, second and third portions of the esophagus at the level of the GE junction, a reflux esophagitis stage II identified with no ulcers or strictures identified in this region. The endoscope was then gently advanced into this region through the GE junction. The GE junction was noted to be intrathoracic consistent with a hiatal hernia. There was also a large stomach cardia identified within what appeared to be a grade IV hiatal hernia. The pylorus appeared to be within the sac as well. There were no Arun ulcerations as well as no signs of ischemia and/or volvulus. The endoscope was able to pass through the incarcerated portion of the stomach into the remainder of the antrum with mild gastritis noted; however, no ulcerations. The endoscope was then advanced further into the stomach through the duodenum, which appeared normal with no distal obstructions. The endoscope was then slowly withdrawn while taking a second look and suctioning of residual air with no additional findings. The patient tolerated the procedure well. We will have her continue with medical management for now with small and more frequent meals, avoidance of eating at night as well as head elevation while lying supine. She also needs to avoid caffeinated beverages, spicy, greasy and acidic foods. We will forward this information to her surgeon as well in preparation for hiatal hernia repair. Job ID: [id number] DocumentID: [id number] Dictated Date: 02/21/2018 12:23:09 Webfocus Developer Date: 02/21/2018 17:50:15 Dictated By: HANS GAMEZ MD MTDD
== END 2018-02-21 13:20 | disposition home or self-care (01) ==
LOC: ENDO 10:25
PROVIDERS: ATTEND Surgery
DX: K21.0 Gastro-esophageal reflux disease with esophagitis (principal); K44.9 Diaphragmatic hernia without obstruction or gangrene; K29.70 Gastritis, unspecified, without bleeding; E03.9 Hypothyroidism, unspecified; F32.9 Major depressive disorder, single episode, unspecified; E66.01 Morbid (severe) obesity due to excess calories; Z68.34 Body mass index [BMI] 34.0-34.9, adult; Z79.899 Other long term (current) drug therapy

== ENCOUNTER 2021-03-23 05:31 | Outpatient (RCR) | payer MEDICARE, BC ==
[~2021-03-23] VITALS: Ht 160 cm; Wt 86.6 kg
[~2021-03-23 05:31] MED LIST changes: +[UNRECOGNIZED DRUG - CODE] PO; -[UNRECOGNIZED DRUG - CODE] PO
== END 2021-03-23 10:47 | disposition home or self-care (01) ==
LOC: PREOP 05:31
PROVIDERS: ATTEND Surgery
DX: Z01.812 Encounter for preprocedural laboratory examination (principal); R13.10 Dysphagia, unspecified; Z20.822 Contact with and (suspected) exposure to COVID-19
CPT/HCPCS: 87635

== ENCOUNTER 2021-03-24 10:53 | Day surgery (SDC) | payer MEDICARE, BC ==
--- NOTE | 2021-03-22 07:49 | HISTORY AND PHYSICAL ---
DATE OF SERVICE: DATE OF ADMISSION: 03/29/2021. ATTENDING PRIMARY CARE PHYSICIAN: Roxie Farmer MD. HISTORY OF PRESENT ILLNESS: The patient is a 65-year-old female known to us. She was initially seen in 10/2016 for a chronic cough and loss of appetite as well as a reflux-type of symptoms. She had an x-ray performed, which did show a large retrocardiac hiatal hernia, which was confirmed on EGD. This was done on 10/18/2016 and she was found to have a Hill grade IV hiatal hernia with the gastroesophageal junction and pylorus within the hernia sac. She was referred to [facility] as well as [facility]; however, they were unwilling to proceed with surgery. We eventually found a surgeon at [facility] in [place] by the name of Dr. Arias where he underwent a hiatal hernia repair with mesh as well as a LINX gastroesophageal band to prevent reflux. She reports that since that time, she has developed dysphagia, especially with a specific types of foods including lean meats. Because of this, she has lost some weight in recent months. PAST MEDICAL HISTORY: Hypothyroid, chronic cough, history of hiatal hernia, depression, ocular herpes simplex type 1. ALLERGIES: No known drug allergies. MEDICATIONS: Levothyroxine 75 mcg daily, citalopram 20 mg daily, famciclovir daily. SOCIAL HISTORY: Negative smoke, negative alcohol. FAMILY HISTORY: Mother, some form of intraperitoneal cancer with metastasis to the pancreas, hypertension. Sister, hypertension. Brother, diabetes. VITAL SIGNS: Blood pressure 142/28. Current weight 191.0 pounds, 5 feet 3 inches. REVIEW OF SYSTEMS: Well-nourished female, in no acute distress. She is not experiencing any shortness of breath or difficulty breathing. No chest pain, palpitations, diaphoresis. No nausea, vomiting with dysphagia, especially for specific types of foods including lean meats as well as raw vegetables. No hematemesis, no coffee ground emesis. Normal bowel movements. No red blood per rectum, no dark tarry stools. No fever, chills with some weight loss in the past several months. All other review of systems negative. PHYSICAL EXAMINATION: CHEST: Clear. Good breath sounds bilaterally. HEART: Regular, no murmurs. EXTREMITIES: No lower extremity edema, negative Homans sign. HEENT: No scleral icterus. NECK: No cervical lymphadenopathy. ABDOMEN: Soft, nontender, nondistended. SKIN: Warm, dry. ASSESSMENT AND PLAN: A 65-year-old female with dysphagia, likely secondary to the scar tissue formation, status post hiatal hernia repair with mesh implantation and gastroesophageal reflux expandable LINX placement. We will schedule her for an EGD biopsy as well as a balloon dilatation as necessary. Job ID: [id number] DocumentID: [id number] Dictated Date: 02/28/2021 16:46:18 Automotive Painter Date: 02/28/2021 17:19:45 Dictated By: HANS GAMEZ MD
[~2021-03-24] VITALS: Ht 160 cm; Wt 86.6 kg
[2021-03-24] VITALS (14 sets, daily range): BP systolic 108–191; BP diastolic 55–98
[2021-03-24] MEDS ORDERED: HURRICAINE EXT TUBE (BENZOCAINE) XX PRN (11:00)
[2021-03-24] MEDS ORDERED: MIDAZOLAM 5 MG/5 ML (VERSED) VIAL IV ONE (11:00)
[2021-03-24] MEDS ORDERED: fentaNYL INJ 100 MCG/2 ML AMP IVP ONE (11:00)
[2021-03-24] MEDS ORDERED: LIDOCAINE JELLY 2% 6 ML SYRINGE MM PRN (11:00)
[2021-03-24] MEDS ORDERED: NS IV 500 ML 500 ML IV PRN (11:00)
[2021-03-24] MEDS ORDERED: NS IV 500 ML 500 ML ONE (11:02)
--- NOTE | 2021-03-24 11:21 | Progress Note-Pre Operative ---
Pre-Operative Progress Note H&P Reviewed The H&P was reviewed, patient examined and no changes noted. Date Seen by Provider: Mar 24, 2021 Time Seen by Provider: 11:15 Date H&P Reviewed: Mar 24, 2021 Time H&P Reviewed: 11:15 Pre-Operative Diagnosis: dysphagia HANS GAMEZ MD Mar 24, 2021 11:21
--- NOTE | 2021-03-24 11:22 | Discharge Inst-Surgical ---
D/C Lap Instructions-FRANCO Follow Up Activity as tolerated High Fiber Diet 25g or more per day Avoid Alcohol, Caffeine, Spicy [place] and Acid foods. Drink 64 fluid oz or more of fluids per day. Symptoms to Report: Fever over 101 degree F, Nausea/Vomiting If any problems/questions: Contact your physician or go to Emergency Room HANS GAMEZ MD Mar 24, 2021 11:22
[2021-03-24] MEDS ORDERED: ONDANSETRON 4 MG/2 ML (SDV) Z0FRAN IVP PRN (11:30)
[2021-03-24] MEDS ORDERED: ONDANSETRON 4 MG (ZOFRAN) ORAL DISSOLVE TAB PO PRN (11:30)
[2021-03-24] MEDS ORDERED: MIDAZOLAM 5 MG/5 ML (VERSED) VIAL ONE (12:23)
--- NOTE | 2021-03-24 12:45 | Progress Note-Post Operative ---
Post-Operative Progess Note Surgeon (s)/Machine Operator Helper (s) Surgeon HANS GAMEZ MD Machine Operator Helper: none Pre-Operative Diagnosis dysphagia Post-Operative Diagnosis reflux esophagitis, reflux esophagitis(stage 2), mild dist esophageal stricture, intact HH repair and LINX. Procedure & Operative Findings Date of Procedure 03/24/21 Procedure Performed/Findings EGD with bx and balloon dilatation. Anesthesia Type cs Estimated Blood Loss Estimated blood loss (mL): minimal Specimens/Packing Specimens Removed ge jxn, antrum HANS GAMEZ MD Mar 24, 2021 12:45
--- NOTE | 2021-03-24 17:19 | OPERATIVE REPORT ---
DATE OF SERVICE: 03/24/2021 ATTENDING PRIMARY CARE PHYSICIAN: Roxie Farmer MD PREOPERATIVE DIAGNOSIS: Dysphagia, status post hiatal hernia repair. POSTOPERATIVE DIAGNOSES: Reflux esophagitis stage II, mild distal esophageal stricture, intact hiatal hernia repair. Mild gastritis. No distal obstructions. PROCEDURE: EGD with biopsy and balloon dilatation. SURGEON: Hans Gamez MD. ANESTHESIA: Conscious sedation. ESTIMATED BLOOD LOSS: Minimal. FINDINGS: Reflux esophagitis stage II, mild distal esophageal stricture, intact hiatal hernia repair. Mild gastritis. No distal obstructions. DISPOSITION: The patient tolerated the procedure well. INDICATIONS: The patient is a 65-year-old female known to us. We had initially seen her 10/2016 for a chronic cough and loss of appetite as well as reflux type of symptoms. She had an x-ray performed, which showed a large retrocardiac hiatal hernia, which was confirmed on EGD. The EGD was done on 10/18/2016 and she was found to have a Hill grade IV large hiatal hernia and the gastroesophageal junction and pylorus were within the hernia sac. She was referred to [facility] as well as [facility]; however, they were unwilling to proceed with the surgery and eventually found a surgeon at [facility] in [place] by a surgeon with the name Dr. Arias. She reports that since that time, she has developed dysphagia, especially for specific types of foods including lean meats. DESCRIPTION OF PROCEDURE: The patient was brought to the endoscopy suite, laid in the left lateral decubitus position. After adequate IV pain and sedative medications and conscious sedation anesthesia, the mouthpiece was applied. Endoscope was then placed in the mouth, visualizing the pharynx and hypopharyngeal region. Vocal cords, epiglottis and vallecula identified and appeared to be normal. The endoscope was gently abated esophageal opening and esophagus insufflated. The endoscope was then advanced to the first, second and third portion of esophagus at the level of the GE junction, a reflux esophagitis stage II identified. There appeared to be a mild distal esophageal stricture; however, there was an indentation just below this likely consistent with a LINX apparatus. Reflux esophagitis stage II identified as well and a biopsy was taken with forceps with visualization of good hemostasis. The endoscope was then advanced in the stomach and endoscope retroflexed visualizing no recurrent hiatal hernia. There was some old sutures also identified. There was a mild gastritis. No ulcerations, polyps, or any neoplasms. Pylorus and duodenum appeared normal with no distal obstructions. A biopsy was taken of the antrum to rule out H. pylori with visualization of good hemostasis. We then proceeded with balloon dilatation and the balloon was placed into the stomach and pulled back to the area of the stricture. We then proceeded in a gradual stepwise fashion from 2 to 4 atmospheres of pressure or 19 mm in luminal diameter with moderate resistance and left this in place for approximately 120 seconds. The balloon was then desufflated and removed with visualization of good hemostasis as well as no mucosal tears. Endoscope was then slowly withdrawn while taking a second look and suctioning of residual air with no additional findings. The patient tolerated the procedure well. We will recommend the necessary lifestyle and diet accommodation including small and more frequent meals, avoidance of eating at night as well as head elevation while lying supine. She also needs to avoid caffeinated beverages, spicy, greasy and acidic foods and also avoid the foods that do cause dysphagia. We were able to get an approximately 19 mm. However, she has continued to have recurrence of symptoms, we will have her follow up in approximately 6 weeks for repeat dilatation for a goal luminal dilatation of 20 mm. Job ID: [id number] DocumentID: [id number] Dictated Date: 03/24/2021 12:39:23 Lithographer Helper Date: 03/24/2021 17:18:53 Dictated By: HANS GAMEZ MD
--- NOTE | 2021-04-05 09:04 | Conscious Sedation/ASA ---
IVANA MEEK 04/05/21 0904: Conscious Sedation Pre-Proced Time 11:15 ASA Score For ASA 3 and 4: Consider anesthesia and medical clearance. Also, for patients with a history of failed moderate sedation consider anesthesia. Airway Lungs Heart ASA score ASA 1: a normal healthy patient ASA 2: a patient with a mild systemic disease (mid diabetes, controlled hypertension, obesity ASA 3: a patient with a severe systemic disease that limits activity (angina, COPD, prior Myocardial infarction) ASA 4: a patient with an incapacitating disease that is a constant threat to life (CHF, renal failure) ASA 5: a moribund patient not expected to survive 24 hrs. (ruptured aneurysm) ASA 6: a declared brain- patient whose organs are being harvested. For emergent operations, add the letter E after the classification Sedation Plan The patient is an appropriate candidate to undergo the planned procedure, sedation, and anesthesia. The patient immediately re-assessed prior to indication. HANS GAMEZ MD 04/05/21 1026: Conscious Sedation Pre-Proced Time 10:00 ASA Score 2 Mallampati Classification Grade 2 Sedation Plan Analgesia, Amnesia, Plan communicated to team members, Discussed options with patient/fam, Discussed risks with patient/fam IVANA MEEK Apr 05, 2021 09:04 HANS GAMEZ MD Apr 05, 2021 10:26
== END 2021-03-24 13:55 | disposition home or self-care (01) ==
LOC: ENDO 10:53
PROVIDERS: ATTEND Surgery
DX: K21.00 Gastro-esophageal reflux disease with esophagitis, without bleeding (principal); K22.2 Esophageal obstruction; K29.50 Unspecified chronic gastritis without bleeding; E03.9 Hypothyroidism, unspecified; R05.3 Chronic cough; F32.A Depression, unspecified; B00.50 Herpesviral ocular disease, unspecified; Z79.890 Hormone replacement therapy; Z79.899 Other long term (current) drug therapy; E66.01 Morbid (severe) obesity due to excess calories; Z68.33 Body mass index [BMI] 33.0-33.9, adult

== ENCOUNTER → 2021-10-10 | Outpatient (CLI) | payer MEDICARE, BC ==
--- NOTE | 2021-10-10 12:44 | Diagnostic Imaging Report ---
INDICATION: Screening, postmenopausal COMPARISON: None FINDINGS: AP Spine L1-L4: [BMD (g/cm2): 1.029] [T-Score: -1.4] [Z-Score: -0.4] [BMD Previous: na] [BMD % Change: na] LT Hip Neck: [BMD (g/cm2): 0.749] [T-Score: -2.1] [Z-Score: -0.8] LT Hip Total: [BMD (g/cm2):0.882] [T-Score:-1.0] [Z-Score: 0.0] [BMD Previous: na] [BMD % Change: na] RT Hip Neck: [BMD (g/cm2):0.821] [T-Score:-1.6] [Z-Score:-0.3] RT Hip Total: [BMD (g/cm2):0.893] [T-score:-0.9] [Z-Score:0.0] [BMD Previous:na] [BMD % Change:na] *Indicates significant change from prior examination based on 95% confidence level. World Health Organization criteria for BMD interpretation classify patients as Normal (T-score at or above -1.0), Osteopenic (T-score between -1.0 and -2.5) or Osteoporotic (T-score at or below -2.5). LIMITATIONS AND MODIFICATION: None. FRACTURE RISK (FRAX SCORE): The ten year probability of (%): Major Osteoporotic Fracture: [11.4] Hip Fracture: [2.1] IMPRESSION: 1. Osteopenia (Low bone mass). 2. See below National Osteoporosis Foundation guidelines on when to potentially initiate pharmacologic therapy. Based on the National Osteoporosis Foundation Guidelines, pharmacologic treatment should be initiated in any of the following, unless clinical conditions suggest otherwise: * Any patient with prior fragility fracture of the hip or vertebrae. A spine fracture indicates 5X risk for subsequent spine fracture and 2X risk for subsequent hip fracture. * Osteoporosis (T-score <-2.5). * Postmenopausal women and men age 50 and older with low bone mass/osteopenia (T-score between -1.0 and -2.5) by DXA and 10-year major osteoporotic fracture greater than 20% or a 10-year probability of hip fracture greater than 3%. These fracture risks are supplied above in the FRAX score, if applicable. * Clinician judgement and/or patient preferences may indicate treatment for people with 10-year fracture probabilities above or below these levels. Dictated by: Dictated on workstation # [id number]
--- NOTE | 2021-10-10 18:25 | Diagnostic Imaging Report ---
EXAM: 3-D mammogram bilateral screening. The current study was also evaluated with a Computer Aided Detection (CAD) system. This study was compared to the prior exam of 05/13/2017. At this time, there are no current complaints. FINDINGS: There are scattered fibroglandular densities in both breasts which could obscure a lesion. Overall, there does not appear to have been any significant change when compared to the prior exam. No primary or secondary sign of malignancy is noted. IMPRESSION: 1. There is no radiographic evidence for malignancy. 2. The patient should have her annual bilateral screening mammogram on schedule in October 2022. ACR BI-RADS Category 1: Negative. Result letter will be mailed to the patient. Note: At least 10% of breast cancer is not imaged by mammography. Dictated by: Dictated on workstation # [id number]
== END ==
LOC: RAD 09:15
PROVIDERS: ATTEND Family Medicine
DX: Z13.820 Encounter for screening for osteoporosis (principal); Z12.31 Encounter for screening mammogram for malignant neoplasm of breast; M85.80 Other specified disorders of bone density and structure, unspecified site; Z78.0 Asymptomatic menopausal state
CPT/HCPCS: 77063; 77067; 77080